=== PATIENT | female | born 1955 | race Caucasian/White ===

== ENCOUNTER → 2017-12-29 09:49 | Outpatient (CLI) | payer BC, SELFPAY ==
--- NOTE | 2017-12-29 09:53 | MM_ITS ---
MM Dig screening mamm BI w/CAD CAD Screening COMPARISON: Analog mammograms 01/10/2010 INDICATION: There is no personal or family history of breast cancer TECHNIQUE: Standard CC and MLO images were obtained. R2 CAD reviewed. FINDINGS: Scattered fibroglandular densities are seen in both breast. Again noted is a slightly asymmetric area of increased glandular densities in the upper outer quadrant left breast. There are stable small asymmetric moderate benign-appearing density near the axilla tail left breast likely a low-lying node. There is no suspicious lesion and there are no suspicious microcalcifications. IMPRESSION: Fibrofatty parenchyma with no suspicious lesion seen BI-RADS Category: 2 Benign Finding(s) RECOMMENDED FOLLOW-UP: 1YR - 1 YEAR FOLLOW-UP (A letter has been sent to the patient regarding results of the study.)
== END ==
PROVIDERS: PCP Nurse Practitioner Family; Visit Provider Nurse Practitioner Family
DX: Z12.31 Encounter for screening mammogram for malignant neoplasm of breast (principal)
CPT/HCPCS: 77067

== ENCOUNTER → 2018-03-26 11:30 | Outpatient (CLI) | payer BC, SELFPAY ==
--- NOTE | 2018-03-26 11:42 | XR_ITS ---
XR hand RT min 3V HISTORY: Pain ITS.REASON: NAIF ARTHRITIS ORDERING PHYSICIAN: Cornelio Onofre MD PATIENT AGE: 62 years COMPARISON: None FINDINGS: No fracture or dislocation. No lytic or blastic change. There is normal mineralization.. erosive changes evident.. There are mild osteoarthritic changes of the fifth PIP joint. No erosive changes evident. Mild osteoarthritic changes also involve the second DIP joint. IMPRESSION: Mild osteoarthritis
--- NOTE | 2018-03-26 11:42 | XR_ITS ---
XR hand LT min 3V HISTORY: Left hand pain ITS.REASON: NAIF ARTHRITIS ORDERING PHYSICIAN: Cornelio Onofre MD PATIENT AGE: 62 years COMPARISON: None FINDINGS: No fracture or dislocation. No lytic or blastic change. There is normal mineralization.. The joint spaces are well-preserved. No significant degenerative/arthritic changes. No erosive changes evident.. No erosive changes. Faint calcific density is present along the ulnar aspect of the DIP joint of the second finger not significant IMPRESSION: Negative, no acute finding
== END ==
PROVIDERS: PCP Internal Medicine Adolescent Medicine; Visit Provider Internal Medicine Adolescent Medicine
DX: M19.049 Primary osteoarthritis, unspecified hand (principal)
CPT/HCPCS: 73130

== ENCOUNTER → 2018-10-19 12:53 | Outpatient (CLI) | payer BC, SELFPAY ==
--- NOTE | 2018-10-19 12:59 | CT_ITS ---
CT lung screening EXAM: CT LUNG LOW DOSE WO CONTRAST HISTORY: ITS.REASON: TOBACCO DEPENDENCE ORDERING PHYSICIAN: Gorge Pate MD PATIENT AGE: 63 years COMPARISON: None TECHNIQUE: The exam was performed on a GE Light Speed [address] scanner using 2.90 mGy CTDI. A low dose helical CT CHEST was performed on a multi-detector scanner. All CT scans at the facility use one or more dose reduction, viz: automated exposure control, ma/kV adjustment per patient size (including targeted exams where dose is matched to indication, i.e. head), or iterative reconstruction technique. The LDCT was performed in a facility that meets the criteria for the screening program. Data regarding this exam was submitted to ACR which is an approved registry. The order for this exam indicates that it came as a result of a lung cancer screening counseling shard decision-making visit that included all the elements required of such a visit including smoking cessation. The radiologist interpreting this exam meets the CMS criteria for the LDCT lung cancer screening program. The exam is reported using the Lung-RADS classification scale and reported to the ACR registry. NOTE: This study was performed for the specific purposes of lung cancer screening and is not an alternative to diagnostic chest CT. RADIATION DOSE: CTDI vol(CT dose Index-volume) = 2.90mG DLP (Dose Length Product) = 99.40 mGcm FINDINGS: Indeterminate or Suspicious Lung Nodules(Category3-4B): None Indeterminate/Non-actionable Nodules(Category2): None Benign nodules(Category1)None LUNG PARENCHYMA Moderate centrilobular emphysema with hyperinflation and peribronchial thickening consistent with obstructive chronic bronchitis 8 mm nodular density right lower lobe in the lung base anteriorly possibly due to confluence of vessels. There are several small nodular densities around this region measuring 2 to 3 mm. Urinary calcifications. Small hiatal hernia. IMPRESSION: 1. Lung RADS Category: 3, probably benign 2. Other findings: Centrilobular edema/chronic bronchitis Coronary artery calcification RECOMMENDATIONS: 6 month LDCT follow-up
--- NOTE | 2018-10-19 13:00 | XR_ITS ---
XR DEXA axial skeleton HISTORY: ITS.REASON: POST MENOPAUSAL ORDERING PHYSICIAN: Gorge Pate MD PATIENT AGE: 63 years COMPARISON: None FINDINGS: The BMD measured at the AP Spine L1-L4 femoral neck is 1.066 g/cm squared with a T score of -0.9. This is considered Normal according to the World Health Organization criteria. Fracture risk is Low. Treatment is advised. L1 L4 density has a T score of -0.9 IMPRESSION: Normal bone density with low fracture risk. Recommend follow-up exam in October 2020
== END ==
PROVIDERS: PCP Internal Medicine Adolescent Medicine; Visit Provider Internal Medicine Adolescent Medicine
DX: Z12.2 Encounter for screening for malignant neoplasm of respiratory organs (principal); Z87.891 Personal history of nicotine dependence; Z13.820 Encounter for screening for osteoporosis; Z78.0 Asymptomatic menopausal state
CPT/HCPCS: 77080

== ENCOUNTER → 2020-01-24 13:51 | Outpatient (CLI) | payer MEDICARE, SELFPAY ==
--- NOTE | 2020-01-24 14:02 | XR_ITS ---
PROCEDURE: XR CHEST 2V CLINICAL HISTORY: COUGH COMPARISON: No exams were available for comparison FINDINGS: The cardiomediastinal silhouette and pulmonary vascularity are within normal limits. The lungs are clear without infiltrates, suspicious nodules, or pleural effusions. No acute bony abnormalities. IMPRESSION: No acute findings. Dictated by: Roge Elias MD 01/24/2020 15:36 Electronically signed by Roge Elias MD in [place] 01/24/2020 15:36
[2020-01-24 14:24] LABS: Adenovirus,PCR Not Detected (NotDetected); Bordetella Pertussis Not Detected (NotDetected); Chlamydophila Pneumoniae, PCR Not Detected (NotDetected); Coronavirus 229E Not Detected (NotDetected); Coronavirus NL63 Not Detected (NotDetected); Coronavirus OC43 Not Detected (NotDetected); Coronovirus HKU1,PCR Not Detected (NotDetected); Human Metapneumovirus Not Detected (NotDetected); Influenza A, PCR Not Detected (NotDetected); Influenza AH1, 2009 Not Detected (NotDetected); Influenza AH1, PCR Not Detected (NotDetected); Influenza AH3,PCR Not Detected (NotDetected); Influenza B, PCR Not Detected (NotDetected); Mycoplasma Pneumoniae, PCR Not Detected (NotDetected); Parainfluenza 1, PCR Not Detected (NotDetected); Parainfluenza 2, PCR Not Detected (NotDetected); Parainfluenza 3, PCR Not Detected (NotDetected); Parainfluenza 4, PCR Not Detected (NotDetected); Respiratory Syncytial Virus Not Detected (NotDetected); Rhinovirus/Enterovirus Not Detected (NotDetected)
== END ==
PROVIDERS: PCP Internal Medicine Adolescent Medicine; Visit Provider Internal Medicine Adolescent Medicine
DX: R05 Cough (principal)
CPT/HCPCS: 71046; 87486; 87581; 87633; 87798

== ENCOUNTER → 2020-02-16 07:59 | Outpatient (CLI) | payer MEDICARE, SELFPAY ==
--- NOTE | 2020-02-16 08:03 | CT_ITS ---
PROCEDURE: CT LUNG SCREENING CLINICAL INDICATION: HX TOBACCO USE Forty pack-year smoking history, asymptomatic for lung cancer COMPARISON: LUNGSCREEN CT lung screening from 10/19/2018 TECHNIQUE: The exam was performed on a GE Light Speed [address] scanner using 2.90 mGy CTDI. A low dose helical CT CHEST was performed on a multi-detector scanner. All CT scans at the facility use one or more dose reduction, viz: automated exposure control, ma/kV adjustment per patient size (including targeted exams where dose is matched to indication, i.e. head), or iterative reconstruction technique. The LDCT was performed in a facility that meets the criteria for the screening program. Data regarding this exam was submitted to ACR which is an approved registry. The order for this exam indicates that it came as a result of a lung cancer screening counseling shard decision-making visit that included all the elements required of such a visit including smoking cessation. The radiologist interpreting this exam meets the CMS criteria for the LDCT lung cancer screening program. The exam is reported using the Lung-RADS classification scale and reported to the ACR registry. NOTE: This study was performed for the specific purposes of lung cancer screening and is not an alternative to diagnostic chest CT. RADIATION DOSE: CTDI vol(CT dose Index-volume) = 2.90mG DLP (Dose Length Product) = 96.38 mGcm Lung Rads Category: FINDINGS: Centrilobular emphysema with COPD. There is a lobular opacity in the right lung base within the right lower lobe anteriorly which is felt to be due to a confluence of mildly prominent vessels/varicose. This is slightly more prominent compared to the previous exam. No suspicious nodules are evident. OTHER FINDINGS: Small hiatal hernia. Coronary artery calcifications IMPRESSION: Lobular opacity is present in the right lower lobe anteriorly compatible with pulmonary varix with COPD/in centrilobular emphysema Lung rads category 2 benign findings. Recommend annual LDCT Dictated by: Roge Elias MD 02/26/2020 10:59 Electronically signed by Roge Elias MD in [place] 02/26/2020 10:59
== END ==
PROVIDERS: PCP Internal Medicine Adolescent Medicine; Visit Provider Nurse Practitioner Family
DX: Z87.891 Personal history of nicotine dependence (principal); Z12.2 Encounter for screening for malignant neoplasm of respiratory organs

== ENCOUNTER → 2020-07-14 12:08 | Outpatient (CLI) | payer MEDICARE, SELFPAY ==
--- NOTE | 2020-07-14 12:33 | MM_ITS ---
PROCEDURE: MM DIG SCREENING MAMM BI W/CAD Digital Breast Tomosynthesis Included CLINICAL INDICATION: ROUTINE SCREENING There is no personal or family history of breast cancer. COMPARISON: MG XR MAMMO DIG SCREEN W CAD MOB from 04/28/2008 MG XR MAMMO DIG SCREEN CAD from 01/10/2010 [facility] MM Dig screening mamm BI w/CAD from 12/29/2017 TECHNIQUE: Standard CC and MLO images and 3D Tomosynthesis was obtained. R2 CAD reviewed. FINDINGS: Mild diffuse fibroglandular densities are seen throughout both breasts. There is a stable small nodular lesion upper central aspect left breast with a slightly lobulated border and this almost surely is a intramammary node. There is no new or suspicious lesion in either breast and no suspicious microcalcifications. There are multiple small nodes in both axilla. IMPRESSION: Fibrofatty parenchyma with no suspicious lesions seen BI-RAD Category: 2 Benign Finding(s) FOLLOW-UP: 1YR 1 Year Follow-up (A letter has been sent to the patient regarding results of the study.) Dictated by: Dr. Teto Philip MD 07/14/2020 13:09 Dr. Teto Philip MD in [place] 07/14/2020 13:09
== END ==
PROVIDERS: PCP Internal Medicine Adolescent Medicine; Visit Provider Nurse Practitioner Family
DX: Z12.31 Encounter for screening mammogram for malignant neoplasm of breast (principal); R06.02 Shortness of breath
CPT/HCPCS: 77063; 77067; 94060; 94618

== ENCOUNTER → 2020-09-02 10:45 | Outpatient (CLI) | payer MEDICARE, SELFPAY ==
[2020-09-02 14:33] LABS: Coronavirus 19 IgG Antibody Positive (Negative); Coronavirus 19 IgM Antibody Negative (Negative)
== END ==
PROVIDERS: Visit Provider Internal Medicine Gastroenterology
DX: Z01.818 Encounter for other preprocedural examination (principal); Z12.11 Encounter for screening for malignant neoplasm of colon
CPT/HCPCS: 36415; 86328

== ENCOUNTER 2020-09-04 06:36 | Day surgery (SDC) | payer MEDICARE, SELFPAY ==
[2020-08-29 09:35] VITALS: BMI 27.2
[2020-09-04] VITALS (7 sets, daily range): BP systolic 89–154; BP diastolic 44–80; PULSE 44–60; RESP 17–18; TEMP 36.1–36.8; O2SAT 95–99
--- NOTE | 2020-09-04 09:16 | HMH.ANESCL ---
[facility] Anesthesia Checklist - Patient Identification Patient Identification: Arm Band - Structural Data Admitted From: Home Planned Operative Procedure/s: colonoscopy Consent for Planned Operative Procedure(s) Verified: Yes Verified Documents: Surgical Consent, History and Physical - NPO Status Verified Time NPO: 00:00 - Additional verifications Anesthesia Reactions: No - Airway Assessment C-Spine Mobility Assessed: Yes (mp2) TMJ Mobility Assessed: Yes Dentition: Good Dentition - Neurological Assessment Level of Consciousness: Awake, Alert - Anesthesia Plan Anesthesia Risk discussed: Yes Anesthesia Plan: Verified ASA Class: III Anesthesia Type: MAC [facility] History I have reviewed the patient's past medical history: Yes Medical History: Reports:: Asthma, Chronic Obstructive Pulmonary Disease (COPD), Lung Disease (lotus-cpap hs) Denies:: Cancer, Diabetes Mellitus Type 1, Diabetes Mellitus Type 2, Internal Pacemaker, MRSA, Seizures *Have you ever received a pneumonia vaccine?: Yes *Have you received a flu vaccine this season?: Yes Anesthesia experience/problems:: nac Other Surgeries: Yes: Dilation and Curettage, Other. No: Pacemaker Amputation: No Fractures: No - *Social History Alcohol Intake: never Substance Use Type: denies use *Occupational Status:: retired Housing: house Household Members: spouse *Travel in the last 8 weeks: None Family Hx:: No significant family history
--- NOTE | 2020-09-04 09:41 | HMH.PROC ---
[facility] Procedure Note Procedure Note:: Colonoscopy Procedure Report: Colonoscopy with cold snare polypectomy Endoscopist: Anup Cabrera II, MD Referring physician: Cornelio Onofre M.D. Date of Procedure: September 04, 2020 Equipment: Olympus 180 variable stiffness pediatric colonoscope Sedation: MAC sedation Indication: Mrs. Guzman is a 65-year-old female who is here for initial screening colonoscopy. She does state that her paternal uncle had colon cancer and her sister has had multiple adenomatous colon polyps. She reports no abdominal pain, weight loss, change in her bowel habits or rectal bleeding. She does have some very mild chronic constipation. She also has some trepidation about colonoscopy since her sister and niece both had complications from the procedure itself. Procedure: Prior to the procedure, a history and physical exam was performed, and patient's medications and allergies were reviewed. The risks, benefits and alternatives of the sedation and procedure were discussed with the patient. All questions were answered and informed consent was obtained. The patient was brought to the procedure room. Patient identification and proposed procedure were verified by the physician and the nurse. The patient was placed in a left lateral decubitus position and the scope was passed under direct vision. Throughout the procedure, the patient's blood pressure, pulse, and oxygen saturations were monitored continuously. The colonoscopy was accomplished without difficulty. The patient tolerated the procedure well. Findings: On digital rectal examination there was normal rectal tone. There were no external hemorrhoids. The colonoscope was introduced through the anal canal to the rectum and advanced to the cecum. The ileocecal valve and appendiceal orifice were identified. The scope was advanced a short distance into the ileum which appeared grossly normal. The scope was then withdrawn into the colon. There were 2 diminutive polyps (cecum x1 (3 mm) and ascending x1 (4 mm)) which were both removed via cold snare polypectomy. The cecal polyp was small so it was removed but not retrieved. There were scattered diverticuli throughout the descending and sigmoid colon (LEFT colon). The rectum itself was normal. Upon retroflexion within the rectum there were grade 1-2 internal hemorrhoids. The preparation was excellent throughout with [place] Preparation Score of 9. The cecal time was 12 minutes. Impression: 1. Diminutive colonic polyps x2 2. Left-sided diverticulosis 3. Grade 1-2 internal hemorrhoids Plan: I will follow up the polyp pathology and recommend repeat colonoscopy again in 7-10 years based upon the polyp histology. I would encourage a fiber bowel regimen on a long-term daily maintenance basis.
== END 2020-09-04 10:38 | disposition home or self-care (01) ==
LOC: OUTP 06:38
PROVIDERS: PCP Internal Medicine Adolescent Medicine; Visit Provider Internal Medicine Gastroenterology
PROC: 0DJD8ZZ Inspection of Lower Intestinal Tract, Via Natural or Artificial Opening Endoscopic (ICD-10-PCS; CPT 45378; principal; 2020-09-04 09:00)
DX: Z12.11 Encounter for screening for malignant neoplasm of colon (principal); K63.5 Polyp of colon; K57.30 Diverticulosis of large intestine without perforation or abscess without bleeding; K64.0 First degree hemorrhoids; J44.9 Chronic obstructive pulmonary disease, unspecified; G47.33 Obstructive sleep apnea (adult) (pediatric); Z88.0 Allergy status to penicillin; Z88.8 Allergy status to other drugs, medicaments and biological substances; Z79.51 Long term (current) use of inhaled steroids; Z79.899 Other long term (current) drug therapy
CPT/HCPCS: 45385; 88305

== ENCOUNTER → 2020-11-23 12:51 | Outpatient (CLI) | payer MEDICARE, SELFPAY ==
[2020-11-23 14:52] LABS: Blood Urea Nitrogen 15 mg/dl (7-17); Estimated Glomerular Filt Rate 84 ml/min (>60); GFR (African American) 101 ML/MIN (>60)
== END ==
PROVIDERS: Visit Provider Internal Medicine Adolescent Medicine
DX: R10.811 Right upper quadrant abdominal tenderness (principal); Z80.0 Family history of malignant neoplasm of digestive organs
CPT/HCPCS: 36415; 82565; 84520

== ENCOUNTER → 2020-11-24 08:44 | Outpatient (CLI) | payer MEDICARE, SELFPAY ==
--- NOTE | 2020-11-24 08:52 | CT_ITS ---
PROCEDURE: CT ABDOMEN PELVIS W CON CLINICAL INDICATION: ABD PAIN,VOMITING ruq tenderness, bloating, nausea, acid reflux family hx of bile duct cancer 75ml iso 370 no prior COMPARISON: CT LUNGSCREEN CT lung screening from 10/19/[address] LUNG SCREENING from 02/16/2020 TECHNIQUE: IV Contrast: 75ML Isovue 370 Oral Contrast None Axial images obtained with sagittal and coronal reformats. All CT scans at the facility use one or more dose reduction, viz: automated exposure control, ma/kV adjustment per patient size (including targeted exams where dose is matched to indication, i.e. head), or iterative reconstruction technique. FINDINGS: LOWER THORAX: No change in the nodular opacity in the right lung base. Coronary artery calcifications. ABDOMEN & PELVIS: A small 4 mm hypodensity is present in the right hepatic lobe inferiorly nonspecific too small to categorize. A tiny central hypodensity is present in the spleen and 1 along the peripheral aspect of the spleen posteriorly. These are nonspecific too small to categorize. There is a small hiatal hernia. The adrenal glands and pancreas have an unremarkable appearance no renal or ureteral calculi are evident. There is minimal prominence of the renal pelves. No intestinal obstruction or free air. There is a mild amount of retained colonic feces. No evidence of appendicitis or diverticulitis. There is a small umbilical hernia containing fat. The uterus is canted toward the left with a focal coarse calcification in the uterine fundus. No acute bony findings. IMPRESSION: 1. Small hiatal hernia. 2. Nonspecific small hypodensities of the liver and spleen too small to categorize. 3. Stable nodular opacity in the right lung base 4. Moderate amount of retained colonic feces. No acute abdominal findings Dictated by: Roge Elias MD 11/25/2020 08:20 Roge Elias MD in [place] 11/25/2020 08:20
== END ==
PROVIDERS: PCP Internal Medicine Adolescent Medicine; Visit Provider Nurse Practitioner Family
DX: R10.811 Right upper quadrant abdominal tenderness (principal); Z80.0 Family history of malignant neoplasm of digestive organs
CPT/HCPCS: 74177; Q9967

== ENCOUNTER → 2020-11-28 09:00 | Outpatient (CLI) | payer MEDICARE, SELFPAY ==
--- NOTE | 2020-11-28 09:02 | FL_ITS ---
PROCEDURE: FL BARIUM SWALLOW CLINICAL INDICATION: DYSPHAGIA, UNSPECIFIED TYPE COMPARISON: No exams were available for comparison TECHNIQUE: In the upright position the patient was observed to swallow barium in both the AP and lateral view. The cervical esophagus was examined under fluoroscopy with images obtained. The patient was then placed prone in the right anterior oblique position and was observed to swallow barium with Valsalva technique . FLUOROSCOPY TIME: 1 minutes and 37 seconds FINDINGS: There was no evidence of aspiration. There was normal peristalsis. No filling defects or mucosal abnormalities. No masses or strictures. No hiatal hernia. There was GE reflux during the exam IMPRESSION: GE reflux otherwise negative Dictated by: Roge Elias MD 11/28/2020 14:08 Roge Elias MD in [place] 11/28/2020 14:08
== END ==
PROVIDERS: PCP Internal Medicine Adolescent Medicine; Visit Provider Nurse Practitioner Family
DX: R13.10 Dysphagia, unspecified (principal)
CPT/HCPCS: 74220

== ENCOUNTER → 2021-12-26 11:27 | Outpatient (CLI) | payer MEDICARE, SELFPAY | PROVIDERS: PCP Nurse Practitioner Family; Visit Provider Nurse Practitioner Family | DX: G47.33 Obstructive sleep apnea (adult) (pediatric) (principal); R40.0 Somnolence; R06.83 Snoring; R53.83 Other fatigue | CPT/HCPCS: G0399 ==

== ENCOUNTER → 2022-03-28 10:19 | Outpatient (CLI) | payer MEDICARE, SELFPAY ==
[2022-03-28 14:28] LABS: Basophils # 0.1 K/mm3 (0-0.2); Basophils % 1.2 % (0.1-2.0); Eosinophils # 0.1 K/mm3 (0.0-0.4); Eosinophils % 2.9 % (0.1-12.0); Hematocrit 42.6 % (37.0-47.0); Hemoglobin 14.4 g/dL (12.2-16.2); Lymphocytes # 1.4 K/mm3 (0.7-4.5); Mean Corpuscular HGB Conc 33.8 g/dL (31.8-35.4); Mean Corpuscular Hemoglobin 31.9 pg (27.0-31.2); Mean Corpuscular Volume 94.3 fl (81-99); Mean Platelet Volume 9.2 fl (7.4-10.4); Monocytes # 0.4 K/mm3 (0.1-1.0); Neutrophils # 2.2 K/mm3 (1.8-7.8); Platelet Count 225 K/mm3 (142-424); Red Blood Count 4.52 M/mm3 (4.20-5.40); Red Cell Distribution Width 13.7 % (11.5-17.5); White Blood Count 4.2 K/mm3 (4.8-10.8)
[2022-03-28 14:48] LABS: Chloride 107 mmol/L (98-107); Sodium 139 mmol/L (136-145)
[2022-03-28 14:50] LABS: Blood Urea Nitrogen 12 mg/dl (7-17); Estimated Glomerular Filt Rate 83 ml/min (>60); GFR (African American) 101 ML/MIN (>60)
[2022-03-28 14:51] LABS: Alanine Aminotransferase 24 U/L (12-78); Albumin/Globulin Ratio 1.8 (1.1-1.8); Alkaline Phosphatase 80 U/L (38-126); Aspartate Amino Transferase 24 U/L (14-36); Bilirubin,Total 0.4 mg/dl (0.2-1.3); Calcium 9.3 mg/dl (8.4-10.2); Carbon Dioxide 24 mmol/L (22.0-30.0); Globulin 2.2 g/dL (1.3-3.2); Glucose 119 mg/dl (74-100); Total Protein,Serum 6.2 g/dl (6.3-8.2)
[2022-03-29 11:16] LABS: Hepatitis C Antibody 0.1 s/co ratio (0.0-0.9)
== END ==
PROVIDERS: Visit Provider Nurse Practitioner Family
DX: K62.89 Other specified diseases of anus and rectum (principal); Z20.5 Contact with and (suspected) exposure to viral hepatitis
CPT/HCPCS: 36415; 80053; 85025; 87380

== ENCOUNTER → 2023-01-13 23:35 | Outpatient (CLI) | payer MEDICARE, SELFPAY | PROVIDERS: PCP Family Medicine; Visit Provider Family Medicine | DX: I10 Essential (primary) hypertension (principal) | CPT/HCPCS: 80053; 80061; 84443; 85025 ==

== ENCOUNTER → 2023-01-15 11:00 | Outpatient (CLI) | payer MEDICARE, SELFPAY | PROVIDERS: PCP Nurse Practitioner Family; Visit Provider Nurse Practitioner Family | DX: I25.10 Atherosclerotic heart disease of native coronary artery without angina pectoris (principal); R00.2 Palpitations; R06.02 Shortness of breath; R42 Dizziness and giddiness; R60.9 Edema, unspecified; R94.31 Abnormal electrocardiogram [ECG] [EKG] | CPT/HCPCS: 93270 ==

== ENCOUNTER → 2023-01-27 14:31 | Outpatient (CLI) | payer MEDICARE, SELFPAY ==
--- NOTE | 2023-01-27 14:32 | CT_ITS ---
FINAL REPORT TECHNIQUE: Axial images were obtained from the lung apex to the mid abdomen by computed tomography. This study was performed with techniques to keep radiation doses as low as reasonably achievable (ALARA). Individualized dose reduction techniques using automated exposure control or adjustment of mA and/or kV according to the patient's size were employed. CLINICAL HISTORY: lung cancer screening, Former smoker, quit 5 years ago. smoked 40 years. 1 ppd COMPARISON: 02/16/2020 FINDINGS: CHEST CT LOW DOSE CTDI vol (mGy): 2.7 DLP (mGy-cm): 86.2 There is no axillary adenopathy. There is no hilar or mediastinal adenopathy. The heart is normal in size. There is no pericardial or pleural effusion. There are moderate to advanced changes of centrilobular emphysema, particularly in the upper lobes. There is a tubular vascular structure in the right lower lobe which is stable, probably related to pulmonary varix. Limited images of the upper abdomen are unremarkable. IMPRESSION: Stable tubular structure in the right lower lobe, probably related to pulmonary varix. Lung RADS category 1S. Recommend 12 month follow-up low-dose chest CT. Reviewed, Interpreted and Dictated by Bobby Lance MD Transcribed by Myrna Santacruz Authenticated and [facility]
--- NOTE | 2023-01-27 14:54 | MM_ITS ---
PROCEDURE INFORMATION: Exam: MG Bilateral Screening 3D Mammography Exam date and time: 01/27/2023 3:04 PM Age: 67 years old Clinical indication: Screening mammogram. TECHNIQUE: Imaging protocol: Bilateral Screening tomosynthesis and 2D mammography including computer-aided detection (CAD) when performed. COMPARISON: 1. MG MM DIG SCREENING MAMM BI W/CAD 07/14/2020 12:37 PM 2. [facility] MM Dig screening mamm BI w/CAD 12/29/2017 10:36 AM 3. MG XR MAMMO DIG SCREEN CAD 01/10/2010 11:25 AM FINDINGS: MAMMOGRAPHY: Breast composition: There are scattered areas of fibroglandular density. Mass: None. Architectural distortion: No new or suspicious architectural distortion. Calcifications: No new or suspicious calcifications are present Asymmetric density: No new or suspicious asymmetric density is present Skin thickening: None. Axillary adenopathy: None. IMPRESSION: No mammographic evidence of malignancy. Recommend annual screening mammography unless otherwise clinically indicated. ASSESSMENT: BI-RADS category 1: Negative
== END ==
PROVIDERS: PCP Family Medicine; Visit Provider Nurse Practitioner Family
DX: R63.5 Abnormal weight gain (principal); Z87.891 Personal history of nicotine dependence; Z12.31 Encounter for screening mammogram for malignant neoplasm of breast; Z12.2 Encounter for screening for malignant neoplasm of respiratory organs
CPT/HCPCS: 71271; 77063; 77067

== ENCOUNTER → 2023-02-06 07:18 | Outpatient (CLI) | payer MEDICARE, SELFPAY ==
--- NOTE | 2023-02-06 07:18 | NM_ITS ---
APPROVED REPORT Exam: Nuclear Stress Test Indication: chest pain..fatigue..palpitations..Soa Patient Location: Outpatient Stress Tech: Angy Love PA Tech:Richelle Richardson ARRT RT(R)(N) Ht: 5 ft 6 in Wt: 200 lbs HR: 53 bpm BP: 152/69 mmHg BSA: 2.00 m2 TID: 1.19 BMI: 32.2 History: chest pain..fatigue..palpitations..Soa Procedure: Patient received 0.4 mg of intravenous Lexiscan, resting heart rate 53 bpm, resting blood pressure 152/69 mmHg, with Lexiscan maximum heart rate achieved was 79 bpm which is Less than 85 % of the maximum predicted heart rate and blood pressure was 165/82 mmHg. With Lexiscan, patient denied any complaint of chest pain. Electrocardiogram Resting electrocardiogram showed sinus rhythm, with Lexiscan there is less than 1.[address] segment depression noted from the baseline EKG. The EKG portion of the Lexiscan is nondiagnostic. Cardiac Stress and Resting SPECT Images: Cardiac Stress and Resting SPECT images were obtained using technetium 99m Myoview 32.9 mCi stress and 10.50 mCi at rest. Gated SPECT analysis of segmental wall motion and calculation of the ejection fraction also done. Prone images were also obtained. Cardiac stress and rest respectively show uniform myocardial activity without segmental perfusion abnormality, computer derived ejection fraction is 60% with no regional wall motion abnormality, right ventricle is normal size and contractility. Conclusion: 1. The EKG portion of the Lexiscan is nondiagnostic. 2. No scintigraphic evidence of reversible ischemia seen, computer derived ejection fraction is 60% with no regional wall motion abnormality, right ventricle is normal size and contractility. 3. Normal Lexiscan Myoview study. Electronically signed by : Clovis Gomez MD 02/06/2023 16:57:42
--- NOTE | 2023-02-06 08:15 | CA_ITS ---
APPROVED REPORT EXAM: Comprehensive 2D, Doppler, and color-flow Echocardiogram Project Manager: Marilynn Melton RVT Ht: 5 ft 6 in Wt: 203lbs BSA: 2.01 BP: 132/82 mmHg Indications: CP,GERD,ABN EKG,EX SMOKER,PALPS,SOA 2D Dimensions LVOT 2.19 cm (M/F) 1.5-2.5 LA Volume 34.10 mL LA Volume Index 16.97 mL/m2 (M/F) 16-34 M-Mode Dimensions RVDd 2.46 cm (0.9-2.6) LA Diam 3.79 cm (1.9-4.0) LVDd 4.25 cm (3.5-5.7) Ao Diam 3.07 cm (2.0-3.7) LVDs 3.46 cm (3.5-5.7) IVSd 0.95 cm (0.6-1.1) PWd 1.06 cm (0.6-1.1) EF (Teich) 38.70% FS 18.60% EDV (Teich) 80.80 mL TAPSE 2.73 (<1.7) ESV (Teich) 49.50 mL LV Diastology E Decel Time 260.00 (160-240 msec) E/A Ratio 1.0 MED E' 8.10 (< 7 cm/sec) E'/MED E' Ratio 8.90 (>14) LAT E' 8.00 (<10 cm/sec) E/LAT E' Ratio 9.01 (>14) Aortic Valve AO Peak GR. 5.80 mmHg Mitral Valve MV E Max Judson. 72.00 (40-130 cm/s) MV A Velocity 70.00 (40-130 cm/s) E/A Ratio 1.03 MV Decel. Time 260.00 (160-240 ms) MV PHT 76.00 ms Pulmonary Valve PV Peak Velocity 86.00 (50-150 cm/s) Tricuspid Valve TR P. Velocity 202.00 cm/s RAP Estimate 10.00 mmHg RVSP 26.40 mmHg Left Ventricle Left atrium normal size left ventricle is normal size, estimated ejection fraction 55% with no regional wall motion abnormality, diastolic parameters are within normal range. Right Ventricle Right atrium and right ventricle are normal size and contractility. Aortic Valve Aortic valve is grossly normal there is no aortic stenosis aortic insufficiency. Mitral Valve Mitral valve is grossly normal, there is trace mitral regurgitation. Tricuspid Valve Tricuspid grossly normal, there is trace tricuspid regurgitation, tricuspid regurgitation jet velocity is inadequate for calculation of the right ventricular systolic pressure. Pulmonic Valve Pulmonic valve is poorly visualized. Great Vessels Aortic root normal size. Inferior vena cava normal size with normal inspiratory collapse. Pericardium No significant pericardial effusion noted. Conclusion 1. Normal left ventricular size preserved left ventricular systolic function, estimated ejection fraction 55% with no regional wall motion abnormality, diastolic parameters are within normal range. 2. Trace mitral and tricuspid regurgitation. 3. No significant pericardial effusion noted. 4. Inferior vena cava normal size with normal inspiratory collapse. Electronically signed by : Clovis Gomez MD 02/06/2023 17:25:02
--- NOTE | 2023-02-06 09:13 | CA_ITS ---
APPROVED REPORT Exam: Pharmacologic Technologist: Angy Schaeffer, Ht: 5 ft 6 in Wt: 203 lbs BSA: 2.01 m2 HR: 52 bpm BP: 152/69 mmHg Medical History Medications: Omeprazole,,,,, Ropinirole,,,,, Albuterol,,,,, Calcium,,,,, Magnesium,,,,, Metamucil,,,,, Potassium,,,,, Myrbetriq,,,,, [place],,,,, GlUCOsamine hci,,,,, Same,,,,, Stress Test Details Test: LEXISCAN Reason for pharmacologic stress test: physical limitation. HR Resting HR: 53 bpm Max Heart Rate (APMHR): 152.821025 bpm Max HR Achieved: 79 bpm Target HR (85% APMHR): 129.481260 bpm % of APMHR: 51.97 Recovery HR: 65 bpm BP Resting BP: 152.0/69.0 mmHg Max BP: 165.0/82.0 mmHg Recovery BP: 165.0/82.0 mmHg ECG Resting ECG: Sinus lamin, low voltage QRS Clinical Exercise duration: 04:02 min Highest Stage Achieved: Stress ECG Conclusion Symptoms: Mild head discomfort. No CP. Arrhythmias/Ectopy: None ST-T Changes: No ST-T changes in lateral leads. Conclusion: Non-diagnostic Lexiscan strss. Myoview images reported separately. Test Summary REST . . . . . . . Resting REST 03:30 . . 53 . 152/ 69 . . Stage 1 01:00 . . 64 . . . . Stage 2 01:00 . . 77 . . . . Stage 3 01:00 . . 72 . 162/ 84 . . Stage 4 01:00 . . 66 . 128/ 80 . . Stage 4 01:02 . . 66 . 128/ 80 . Stop exercise at 04:02 RECOVERY 01:00 . . 69 . . . . RECOVERY 02:00 . . 67 . 127/ 85 . . RECOVERY 03:00 . . 64 . 165/ 82 . . RECOVERY 03:47 . . 62 . 165/ 82 . . Electronically signed by : Clovis Gomez MD 02/06/2023 16:46:52
== END ==
PROVIDERS: PCP Family Medicine; Visit Provider Nurse Practitioner Family
DX: I25.10 Atherosclerotic heart disease of native coronary artery without angina pectoris (principal); R00.2 Palpitations; R06.02 Shortness of breath; R42 Dizziness and giddiness; R94.31 Abnormal electrocardiogram [ECG] [EKG]
CPT/HCPCS: 78452; 93017; 93306; A9502; J2785

== ENCOUNTER → 2023-03-04 10:49 | Outpatient (CLI) | payer MEDICARE, SELFPAY ==
[2023-03-04 11:50] LABS: Eosinophils # 0.1 K/mm3 (0.0-0.4); Eosinophils % 1.4 % (0.1-12.0); Hematocrit 45.6 % (37.0-47.0); Hemoglobin 14.9 g/dL (12.2-16.2); Lymphocytes # 1.3 K/mm3 (0.7-4.5); Lymphocytes % 32.4 % (10-50); Mean Corpuscular HGB Conc 32.8 g/dL (31.8-35.4); Mean Corpuscular Hemoglobin 31.4 pg (27.0-31.2); Mean Corpuscular Volume 95.9 fl (81-99); Mean Platelet Volume 8.1 fl (7.4-10.4); Monocytes # 0.4 K/mm3 (0.1-1.0); Monocytes % 8.5 % (1.7-9.3); Neutrophils # 2.3 K/mm3 (1.8-7.8); Neutrophils % 56.8 % (37.0-80.0); Platelet Count 204 K/mm3 (142-424); Red Blood Count 4.76 M/mm3 (4.20-5.40); Red Cell Distribution Width 13.1 % (11.5-17.5); White Blood Count 4.1 K/mm3 (4.8-10.8)
[2023-03-09 18:20] LABS: D001-IgE D pteronyssinus <0.10 kU/L (Class 0); D002-IgE D farinae <0.10 kU/L (Class 0); E001-IgE Cat Dander <0.10 kU/L (Class 0); E005-IgE Dog Dander <0.10 kU/L (Class 0); E072-IgE Mouse Urine <0.10 kU/L (Class 0); G002-IgE Bermuda Grass <0.10 kU/L (Class 0); G006-IgE Timothy Grass <0.10 kU/L (Class 0); I006-IgE Cockroach, German <0.10 kU/L (Class 0); Immunoglobulin E, Total 16 IU/mL (6-495); M001-IgE Penicillium chrysogen <0.10 kU/L (Class 0); M002-IgE Cladosporium herbarum <0.10 kU/L (Class 0); M003-IgE Aspergillus fumigatus <0.10 kU/L (Class 0); M006-IgE Alternaria alternata <0.10 kU/L (Class 0); T001-IgE Maple/Box Elder <0.10 kU/L (Class 0); T003-IgE Common Silver Birch <0.10 kU/L (Class 0); T006-IgE Cedar, Mountain <0.10 kU/L (Class 0); T007-IgE Oak, White <0.10 kU/L (Class 0); T008-IgE Elm, American <0.10 kU/L (Class 0); T010-IgE Walnut <0.10 kU/L (Class 0); T011-IgE Maple Leaf Sycamore <0.10 kU/L (Class 0); T014-IgE Cottonwood <0.10 kU/L (Class 0); T015-IgE Ash, White <0.10 kU/L (Class 0); T022-IgE Pecan, Hickory <0.10 kU/L (Class 0); T070-IgE White Mulberry <0.10 kU/L (Class 0); W001-IgE Ragweed, Short <0.10 kU/L (Class 0); W011-IgE Thistle, Russian <0.10 kU/L (Class 0); W014-IgE Pigweed, Common <0.10 kU/L (Class 0); W018-IgE Sheep Sorrel <0.10 kU/L (Class 0)
== END ==
PROVIDERS: PCP Family Medicine; Visit Provider Internal Medicine Pulmonary Disease
DX: J45.909 Unspecified asthma, uncomplicated
CPT/HCPCS: 36415; 82785; 85025; 86003

== ENCOUNTER → 2023-07-10 10:15 | Outpatient (CLI) | payer MEDICARE, SELFPAY ==
[2023-07-08 18:37] LABS: Basophils % 0.6 % (0.1-2.0); Eosinophils # 0.1 K/mm3 (0.0-0.4); Eosinophils % 1.6 % (0.1-12.0); Lymphocytes # 1.5 K/mm3 (0.7-4.5); Lymphocytes % 31.6 % (10-50); Mean Corpuscular HGB Conc 32.6 g/dL (31.8-35.4); Mean Corpuscular Hemoglobin 32.4 pg (27.0-31.2); Mean Corpuscular Volume 99.2 fl (81-99); Mean Platelet Volume 9.9 fl (7.4-10.4); Monocytes # 0.4 K/mm3 (0.1-1.0); Neutrophils # 2.6 K/mm3 (1.8-7.8); Neutrophils % 57.1 % (37.0-80.0); Platelet Count 224 K/mm3 (142-424); Red Blood Count 4.64 M/mm3 (4.20-5.40); White Blood Count 4.6 K/mm3 (4.8-10.8)
[2023-07-08 18:57] LABS: Alanine Aminotransferase 20 U/L (12-78); Albumin Level 4.2 g/dl (3.5-5.0); Albumin/Globulin Ratio 1.4 (1.1-1.8); Alkaline Phosphatase 84 U/L (38-126); Anion Gap 12.5 mEq/L (5-15); Aspartate Amino Transferase 23 U/L (14-36); Bilirubin,Total 0.4 mg/dl (0.2-1.3); Blood Urea Nitrogen 12 mg/dl (7-17); Calcium 9.4 mg/dl (8.4-10.2); Carbon Dioxide 27 mmol/L (22.0-30.0); Chloride 104 mmol/L (98-107); Cholesterol 250 mg/dl (140-200); Estimated Glomerular Filt Rate 83 ml/min (>60); GFR (African American) 100 ML/MIN (>60); Glucose 100 mg/dl (74-100); HDL Cholesterol 82 mg/dl (40-60); Potassium 4.5 mmoL/L (3.5-5.1); Sodium 139 mmol/L (136-145); Total Protein,Serum 7.2 g/dl (6.3-8.2); Triglycerides 171 mg/dl (30-150); VLDL Cholesterol 34 mg/dL (0-40)
[2023-07-08 19:28] LABS: Thyroid Stimulating Hormone 1.46 uIU/mL (0.465-4.68)
== END ==
PROVIDERS: PCP Family Medicine; Visit Provider Family Medicine
DX: I10 Essential (primary) hypertension (principal); I25.10 Atherosclerotic heart disease of native coronary artery without angina pectoris; R53.83 Other fatigue; Z00.00 Encounter for general adult medical examination without abnormal findings
CPT/HCPCS: 80053; 80061; 84443; 85025

== ENCOUNTER 2024-03-23 10:09 | Outpatient (CLI) | payer MEDICARE, SELFPAY ==
--- NOTE | 2024-03-23 10:14 | US_ITS ---
FINAL REPORT CLINICAL HISTORY: intermittent abdominal pain FINDINGS: RIGHT UPPER QUADRANT ULTRASOUND Sonographic images of the right upper quadrant were obtained. The pancreas is partially obscured. There is mild fatty infiltration of the liver. Multiple gallstones are identified. The common duct measures 3 mm. Limited images of the right kidney are normal. IMPRESSION: Cholelithiasis. Fatty liver. Reviewed, Interpreted and Dictated by Carl Hall III, MD Transcribed by Myrna Santacruz Authenticated and [facility]
== END 2024-03-23 23:59 | disposition home or self-care (01) ==
PROVIDERS: PCP Family Medicine; Visit Provider Family Medicine
DX: R10.9 Unspecified abdominal pain (principal)
CPT/HCPCS: 76705

== ENCOUNTER 2024-07-23 14:30 | Outpatient (CLI) | payer MEDICARE, SELFPAY | END 2024-07-23 23:59 | disposition home or self-care (01) | LOC: LAB.DROPOF 07-26 12:55 | PROVIDERS: PCP Family Medicine; Visit Provider Family Medicine | DX: R30.0 Dysuria (principal); N39.0 Urinary tract infection, site not specified; B96.20 Unspecified Escherichia coli [E. coli] as the cause of diseases classified elsewhere | CPT/HCPCS: 87086; 87088; 87186 ==

== ENCOUNTER 2024-09-15 09:00 | Outpatient (CLI) | payer MEDICARE, SELFPAY ==
[2024-09-15 09:34] LABS: Basophils # 0.1 K/mm3 (0-0.2); Basophils % 1.4 % (0.1-2.0); Eosinophils # 0.1 K/mm3 (0.0-0.4); Eosinophils % 1.4 % (0.1-12.0); Hematocrit 45.6 % (37.0-47.0); Hemoglobin 16.1 g/dL (12.2-16.2); Lymphocytes # 1.2 K/mm3 (0.7-4.5); Lymphocytes % 28.1 % (10-50); Mean Corpuscular HGB Conc 35.3 g/dL (31.8-35.4); Mean Corpuscular Hemoglobin 33.1 pg (27.0-31.2); Mean Corpuscular Volume 93.8 fl (81-99); Mean Platelet Volume 7.8 fl (7.4-10.4); Monocytes # 0.4 K/mm3 (0.1-1.0); Monocytes % 9.2 % (1.7-9.3); Neutrophils # 2.6 K/mm3 (1.8-7.8); Neutrophils % 59.9 % (37.0-80.0); Platelet Count 247 K/mm3 (142-424); Red Blood Count 4.86 M/mm3 (4.20-5.40); Red Cell Distribution Width 12.9 % (11.5-17.5); White Blood Count 4.3 K/mm3 (4.8-10.8)
[2024-09-15 09:57] LABS: Alanine Aminotransferase 26 U/L (12-78); Albumin Level 4.4 g/dl (3.5-5.0); Alkaline Phosphatase 73 U/L (38-126); Anion Gap 12.3 mEq/L (5-15); Aspartate Amino Transferase 27 U/L (14-36); Bilirubin,Direct 0.4 mg/dl (0.0-0.4); Bilirubin,Indirect 0.1 mg/dL (0.0-0.9); Bilirubin,Total 0.5 mg/dl (0.2-1.3); Bilirubin,Unconjugated 0.1 mg/dL (0.0-1.1); Blood Urea Nitrogen 8 mg/dl (7-17); Calcium 9.6 mg/dl (8.4-10.2); Carbon Dioxide 27 mmol/L (22.0-30.0); Chloride 103 mmol/L (98-107); Chol/HDL Ratio 2.5 (1-3.5); Cholesterol 242 mg/dl (140-200); Estimated Glomerular Filt Rate 83 ml/min (>60); GFR (African American) 100 ML/MIN (>60); Glucose 90 mg/dl (74-100); HDL Cholesterol 96 mg/dl (40-60); Potassium 4.3 mmoL/L (3.5-5.1); Sodium 138 mmol/L (136-145); Total Protein,Serum 6.9 g/dl (6.3-8.2); Triglycerides 118 mg/dl (30-150); VLDL Cholesterol 24 mg/dL (0-40)
[2024-09-15 10:08] LABS: Direct LDL Cholesterol 125.21 mg/dL (100-129)
[2024-09-15 10:13] LABS: Free T4 (Free Thyroxine) 0.97 ng/dl (0.78-2.19)
[2024-09-15 10:27] LABS: Thyroid Stimulating Hormone 1.89 uIU/mL (0.465-4.68)
== END 2024-09-15 23:59 | disposition home or self-care (01) ==
LOC: LAB 09:02
PROVIDERS: PCP Family Medicine; Visit Provider Physician Assistant
DX: I10 Essential (primary) hypertension (principal); Z01.818 Encounter for other preprocedural examination
CPT/HCPCS: 36415; 80048; 80061; 80076; 84439; 84443; 85025

== ENCOUNTER 2025-01-18 13:34 | Outpatient (CLI) | payer MEDICARE, SELFPAY ==
--- NOTE | 2025-01-18 13:35 | CT_ITS ---
FINAL REPORT TECHNIQUE: Thin section axial images were obtained from the lung apices to the upper abdomen by computed tomography. Reformatted images were obtained and reviewed. This study was performed with techniques to keep radiation doses al low as reasonably achievable (ALARA). Individualized dose reduction techniques using automated exposure control or adjustment of mA and/or kV according to the patient's size were employed. CLINICAL HISTORY: lung cancer screening former smoker quit 8 years ago, 1ppd x45 years COMPARISON: 01/27/2023 FINDINGS: CHEST CT LOW DOSE 68-year-old female, former smoker who quit 8 years ago, 80-xxxj-asbi history. CTDI vol (mGy): 2.90 DLP (mGy-cm): 95.34 There is no axillary adenopathy. There is no mediastinal or hilar mass or adenopathy. The heart is normal in size. There is no pericardial or pleural effusion. There is moderate centrilobular emphysema. Lung window images demonstrate a tiny nodule at the margin of the minor fissure best seen on image #36 of series 4. There is also a tubular density in the right lower lobe, likely a varix, stable since the prior exam. Limited images of the upper abdomen are unremarkable. IMPRESSION: Lung-RADS category 2S, the S for a probable pulmonary pharynx. Recommend 12 month follow up low dose chest CT. Reviewed, Interpreted and Dictated by Bobby Lance MD Transcribed by Debbie Davis Authenticated and [facility]
[2025-01-18] MEDS: ALBUTEROL 0.083% 2.5 MG/3 ML NEB IH (15:05)
== END 2025-01-18 23:59 | disposition home or self-care (01) ==
LOC: RAD 13:35
PROVIDERS: PCP Family Medicine; Visit Provider Internal Medicine Pulmonary Disease
DX: R06.09 Other forms of dyspnea (principal); F17.210 Nicotine dependence, cigarettes, uncomplicated
CPT/HCPCS: 71271; 94060; 94618; 94726; 94729; J7613

== ENCOUNTER 2025-08-08 14:30 | Outpatient (CLI) | payer MEDICARE, SELFPAY ==
--- OUTSIDE RECORDS SUMMARY | 2025-08-08 14:34 | XMS_ITS | Clinical Summary ---
Author Organization [facility] Address [address] [place] [address] Care Team Providers Care Truck Cleaner Name Role Phone Provider, No Known Primary Care Provider Unavail able Social History Tobacco Use Types Packs/Day Years Used Date Smoking Tobacco: Never Assessed Abuse Screen Answer Date Recorded Unsafe at Home or Work/School Not on file Feels Threatened by Someone? Not on file Does Anyone Keep You from Co ntacting Others or Doint Things Outside the Home? Not on file 08/22/2023 Physical Sign of Abuse Present Not on file 1 Housing Stability Answer Date Recorded Current Living Arrangements Not on file 08/10 Potentially Unsafe Housing Conditions Not on lukas e 08/22/2023 Family and Community Support Answer Arturo e Recorded Help with Day-to-Day Activities Not on file 08/22/2023 Lonely or Isolated Not on file 08/22/2023 Employment Answer Date Recorded Do you want help finding or keeping work or a jefferson b? Not on file 08/22/2023 Disabilities Answer Date Recorded Concentrating, Remembering, or Making Decisions Difficulty Not on file 08/22/2023 Doing Errands Independently Difficulty Not on fi le 08/22/2023 Education Answer Date Recorded Help with school or training? Not on file Preferred Language Not on file 08/22/2023 Comments Unknown Sex and Gender Information Value Date Recorded Sex Assigned at Not on file Legal Sex Female 8:55 AM EDT Gender Identity Female 02/25/2023 8:56 AM EDT Sexual Orientation Not on file Plan of Treatment Health Maintenance Due Date Last Done Comments DXA SCAN 1955 TDAP/TD VACCINES (1 - Tdap) 1973 MAMMOGRAM 1994 COLOGUARD 1999 COLON CANCER SCREENING 5 YEA R SIGMOIDOSCOPY 1999 COLONOSCOPY 1999 COLORECTAL CANCER SCREENING 1999 CT COLONOGRAPHY 1999 FECAL OCCULT BLOOD TEST 1999 FIT Testing (1 year) 1999 Pneumococcal Vaccine 50+ (2 of 2 - PCV) 07/07/2021 07/07/2020 ANNUAL PHYSICAL 03/03/2023 HEPATITIS C SCREENING 03/03/2023 ZOSTER VACCINE (2 of 2) 03/13/2023 01/16/2023 INFLUENZA VACCINE 06/10/2025 01/09/2023, , 10/18/2019, Additional history exists COVID-19 Vaccine ( - 2024-2 6 season) 2025 11/27/2021, 02/01/2021, 01/04/2021 Insurance MEDICARE A & B [facility] OPT[facility] Care Teams Truck Cleaner Relationship Specialty Start Date End Date Provider, No Known [place] [address] PCP - General 02/25/23
--- OUTSIDE RECORDS SUMMARY | 2025-08-08 14:34 | XMS_ITS | Clinical Summary ---
Author Organization [facility] Address [address] [place] [address] Care Team Providers Care Hide Buffer Name Role Phone Cornelio Onofre MD Primary Care Provider [phone] Allergies Active Allergy Reactions Criticality Noted Date Comments Bupropion Unknown - Patient states they do not know rxn details Low 09/07/2020 Varenicline Unknown - Patient states they do not know rxn details Low 09/07/2020 Procaine Other - please document in the comment field High 02/17/2023 Burst blood vessels Penicillins Unknown - Patient states they do not know rxn details Low 09/07/2020 Ascorbate Anaphylaxis High 02/17/2023 Blisters also Wound Dressing Adhesive Rash High 02/17/2023 Blisters, and hernandez, Medications rOPINIRole (Requip) 0.25 MG tablet TAKE 1 TABLET BY MOUTH EVERY DAY FOR RESTLESS LEGS SYNDROME 3 Active omeprazole (PriLOSEC) [address] capsule Take by mouth 1 (one) time each day. 3 Active montelukast (Singulair) 10 MG tablet TAKE 1 TABLET BY MOUTH AT BEDTIME FOR ALLERGIES 3 Active Myrbetriq 50 MG tablet 3 Active FLUoxetine (PROzac) 10 MG capsule Take by mouth 1 (one) time each day. 3 Active albuterol 108 (90 Base) MCG/ACT inhaler INHALE 2 PUFFS INTO THE LUNGS EVERY 6 HOURS NEEDED FOR SHORTNESS OF BREATH 3 Active albuterol (Proventil) 4 MG tablet 0 Active albuterol (Proventil) 4 MG tablet Take 1 tablet (4 mg) by mouth. 2 Active S-Adenosylmethi onine (NAYE-e) 400 MG tablet Take by mouth. A ctive metFORMIN XR (Glucophage-XR) 500 MG 24 hr tablet Take 1 tablet (500 mg) by mouth 1 (one) time each day. 3 Active oxybutynin XL (Ditropan-XL) 15 MG 24 hr tablet Take 1 tablet (15 mg) by mouth 1 (one) time each day. 3 Active magnesium chloride 70-117 MG EC tablet Take 1 tablet (70 mg) by mouth 1 (one) time each day. Active glucosamine-cho ndroitin 500-400 MG tablet Take 1 tablet by mouth 3 (three) times a day. Active cholecalciferol (Vitamin D-3) 25 MCG (1000 UT) tablet Take by mouth 1 (one) time each day. Active psyllium (Metamucil) 0.36 g capsule Take 5 capsules by mouth 4 (four) times a day. Active Active Problems No known active problems Family History Medical History Relation Name Comments Neurofibromatosis Other Relation Name Status Comments Other Social History Tobacco Use Types Packs/Day Years Used Date Smoking Tobacco: Former Smokeless Tobacco: Current Alcohol Use Standard Drinks/Week Comments Yes 0 (1 standard drink = 0.6 oz pur e alcohol) Comments Unknown Sex and Gender Information Value Date Recorded Sex Assigned at Not on file Legal Sex Female 7:46 PM EDT Gender Identity Not on file Sexual Orientation Not on file Last Filed Vital Signs Vital Sign Reading Time Taken Comments Blood Pressure 187/81 07/24/2023 1:12 PM EDT Pulse 56 07/24/2023 1:12 PM EDT Temperature 35.6 C (96.1 F) 07/24/2023 1:12 PM EDT Respiratory Rate - - Oxygen Saturation 99% 07/24/2023 1:12 PM EDT Inhaled Oxygen Concentration - - Weight 94.4 kg (208 lb 3.2 oz) 07/24/2023 1:12 P M EDT Height 167.6 cm (5' 6 ) 07/24/2023 1:12 PM EDT Body Mass Index 33.6 07/24/2023 1:12 PM EDT Plan of Treatment Health Maintenance Due Date Last Done Comments [facility]-Bone Density Scan 1955 [facility]-Depression Screening 1955 [facility]-Hepatitis C Screening 1955 [facility]-Medicare Annual Wellness (AWV) 1955 [facility]-/Child/Adol SDOH Screenings 1955 [facility]- SDOH Screenings 1972 [facility]-Adult SDOH Screenings 1972 [facility]-DTaP,Tdap,and Td Vaccine s (1 - Tdap) 1973 CT Colonography 1999 Colonoscopy 1999 FIT-DNA 1999 FIT 1999 FOBT 1999 Sigmoidoscopy 1999 [facility]-Colorectal Cancer Screening 1999 [facility]-Breast Cancer Screening 2004 [facility]-Pneumococcal Vaccine: 50 + Years (2 of 2 - PCV) 07/07/2021 07/07/2020 [facility]-Zoster Vaccines (2 of 2) 03/13/2023 01/16/2023 [id number]-[id number] Vaccine (4 - 2024- season) 2025 11/27/2021, 02/01/2021, 01/04/2021 [facility]-Influenza Vaccine (#1) 07/11/202501/09, 09/24/2018, 12/12/2017 [facility]-RSV Vaccine: 60+ Years o r (1 - 1-dose 75+ series) 2029 [facility]-Obesity Intervention Completed 023, 02/17/2023 HPV Vaccines Aged Out No longer eligi ble based on patient's age to complete this topic [facility]-HIB Vaccines Aged Out No longer e ligible based on patient's age to complete this topic [facility]-Hepatitis A Vaccines Aged Out No longer eligible based on patient's age to complete this topic [facility]-IPV Vaccines Aged Out No longer e ligible based on patient's age to complete this topic [facility]-Rotavirus Vaccines Aged Out No lo nger eligible based on patient's age to complete this topic Insurance MEDICARE [facility] Care Teams Hide Buffer Relationship Specialty Start Date End Date Cornelio Onofre MD [address] [place] [address] PCP - General 03/23/21
--- NOTE | 2025-08-08 15:30 | MM_ITS ---
PROCEDURE INFORMATION: Exam: MG Bilateral Screening 3D Mammography Exam date and time: 08/08/2025 2:44 PM Age: 70 years old Clinical indication: Screening exam. TECHNIQUE: Imaging protocol: Bilateral Screening tomosynthesis and 2D mammography including computer-aided detection (CAD) when performed. COMPARISON: 1. MG MM DIG SCREENING MAMM BI W/CAD 01/27/2023 3:04 PM 2. MG MM DIG SCREENING MAMM BI W/CAD 07/14/2020 12:37 PM FINDINGS: MAMMOGRAPHY: Breast composition: There are scattered areas of fibroglandular density. Mass: No suspicious masses. Architectural distortion: None. Calcifications: No suspicious calcifications. Asymmetric density: None. Skin thickening: None. Axillary adenopathy: None. IMPRESSION: No mammographic evidence of malignancy. Annual screening is recommended unless otherwise clinically indicated. ASSESSMENT: BI-RADS Category 1: Negative.
== END 2025-08-08 23:59 | disposition home or self-care (01) ==
LOC: RAD 14:32
PROVIDERS: PCP Family Medicine; Visit Provider Family Medicine
DX: Z12.31 Encounter for screening mammogram for malignant neoplasm of breast (principal); R92.323 Mammographic fibroglandular density, bilateral breasts
CPT/HCPCS: 77063; 77067

== ENCOUNTER 2025-09-06 14:01 | Outpatient (CLI) | payer MEDICARE, SELFPAY ==
[2025-09-06 16:03] LABS: Albumin Level 3.7 g/dl (3.5-5.0); Chloride 100 mmol/L (98-107); Potassium 5.0 mmoL/L (3.5-5.1); Sodium 135 mmol/L (136-145)
[2025-09-06 16:06] LABS: Alanine Aminotransferase 52 U/L (12-78); Albumin/Globulin Ratio 1.1 (1.1-1.8); Alkaline Phosphatase 107 U/L (38-126); Anion Gap 9.0 mEq/L (5-15); Aspartate Amino Transferase 57 U/L (14-36); Bilirubin,Total 0.6 mg/dl (0.2-1.3); Blood Urea Nitrogen 11 mg/dl (7-17); Carbon Dioxide 31 mmol/L (22.0-30.0); Creatinine,Serum 0.70 mg/dl (0.52-1.04); Estimated Glomerular Filt Rate 82 ml/min (>60); GFR (African American) 100 ML/MIN (>60); Globulin 3.5 g/dL (1.3-3.2); Total Protein,Serum 7.2 g/dl (6.3-8.2)
[2025-09-06 16:07] LABS: Calcium 9.6 mg/dl (8.4-10.2); Glucose 100 mg/dl (74-100)
== END 2025-09-06 23:59 | disposition home or self-care (01) ==
LOC: LAB 14:03
PROVIDERS: PCP Family Medicine; Visit Provider Nurse Practitioner Family
DX: Z80.0 Family history of malignant neoplasm of digestive organs (principal)
CPT/HCPCS: 36415; 80053

== ENCOUNTER 2025-09-09 08:38 | Outpatient (CLI) | payer MEDICARE, SELFPAY ==
--- OUTSIDE RECORDS SUMMARY | 2025-02-12 17:30 | XMS_ITS ---
Author Organization [facility] Address [address] [place] [address] Care Team Providers Care Adding Machine Servicer Name Role Phone Cornelio Onofre Primary Care Provider [phone] Cornelio Onofre Unavailable Unavailable Migration, Provider Unavailable Unavailable Allergies Allergen (clinical drug ingredient) Drug/Non Drug Allergy documented on EMR Reaction Allergy Type Onset Date Status NOVACAINE (uncoded) Unknown Allergy Active WELLBUTRIN (uncoded) headache Allergy Active ascorbic acid Vitamin C SOA Drug Allergy Act jina varenicline Chantix headache Drug Allergy Activ e Penicillin anaphylaxis Drug Allergy Acti ve REASON FOR VISIT [facility] Conversion Encounter Medications Medication SIG (Take, Route, Frequency, Duration) Notes Start Date End Date Status Omeprazole 20 MG 1 cap(s) orally once a day; Duration: 90 Active LEG CRAMP TABLETS 1 TAB(S) ORALLY QHS PRN *Please review for potential replacement for e-prescription and drug interaction check* Active Calcium 600 + D 600 MG-800 INTL UNITS 1 TAB(S) ORALLY DAILY *Please review and pick correct strength-formulat ion from [employer] options. If intended option is not shown, discontinue and re-order from Quick Search* Active Magnesium 400MG 1 TABLET DAILY *Please review and pick correct strength-formulat ion from [employer] options. If intended option is not shown, discontinue and re-order from Quick Search* Active CHLORPHENIRAMINE (ALLERGY) 1 TAB(S) ORALLY QHS *Please review for potential replacement for e-prescription and drug interaction check* Active ALBUTEROL (EQV-PROVENTIL HFA) 90 MCG/INH INHALE 2 PUFF(S) EVERY 6 HOURS NEEDED FOR SHORTNESS OF BREATH; Duration: 30 DAYS *Please review for potential replacement for e-prescription and drug interaction check* Active Naproxen 250 MG 1 tab(s) orally 2 times a day PRN joint pain; Duration: 90 days 11/15/2020 Active Albuterol Sulfate 4 MG 1 tab(s) orally twice daily; Duration: 90 days Active Pseudoephedrine HCl 30 MG 1 tab(s) orally once a day prn; Duration: 30 day(s) 02/17/2020 Active Triamcinolone Acetonide 0.1 % 1 nika applied topically 3 times a day; Duration: 10 days 03/27/2022 Active C-PAP MASK AND SUPPLIES DIRECTED DX SCOTTY; Duration: 30 DAYS *Please review for potential replacement for e-prescription and drug interaction check* 01/21/2020 Active Glucosamine HCl 1500 MG 1 tab(s) orally once a day; Duration: 30 day(s) Active Nicotine 8 POUCHES ORALLY DAILY; Duration: 30 DAY(S) *Please review and pick correct strength-formulat ion from [employer] Plan options. If intended option is not shown, discontinue and re-order from Quick Search* Active rOPINIRole HCl 0.25 MG 1 tab at bedtime for 1 week, if no improvement increase to 2 tabs orally at bedtime; Duration: 30 day(s) Active S-Adenosylmethionine 200 MG 1 TAB(S) ORALLY ONCE A DAY; Duration: 30 DAY(S) *Please review and pick correct strength-formulat ion from [employer] Plan options. If intended option is not shown, discontinue and re-order from Quick Search* Active Encounters Encounter Location Date Provider Diagnosis [facility] [address] [place] [address] 02/12/2025 Provider Migration Allergic dermatitis L23.9 Assessments Encounter Date Diagnosis (ICD Code) Assessment Notes Treatment Notes Treatment Clinical Notes Section Notes 02/12/2025 Allergic dermatitis (ICD-10 - L23.9) Plan Of Treatment Medication Medication Name Sig Start Date Stop Date Notes Omeprazole 20 MG 1 cap(s) orally once a day; Duration: 90 ALBUTEROL (EQV-PROVENTIL HFA) 90 MCG/INH INHALE 2 PUFF(S) EVERY 6 HOURS NEEDED FOR SHORTNESS OF BREATH; Duration: 30 DAYS *Please review for potential replacement for e-prescription and drug interaction check* Albuterol Sulfate 4 MG 1 tab(s) orally t wice daily; Duration: 90 days Triamcinolone Acetonide 0.1 % 1 nika applied topically 3 times a day; Duration: 10 days 03/27/2022 rOPINIRole HCl 0.25 MG 1 tab at bedtime for 1 week, if no improvement increase to 2 tabs orally at bedtime; Duration: 30 day(s) Progress Notes * Camila GUZMANMaribelOB:1955 ( 70 yo F)Acc No.[id number]:02/12/2025 Patient: Awilda PEREZ Provider: Olvin Lees :1955 A ge:69 Y S ex:Female Date:02/12/2025 Address:[address] [place], [place] [id number] Pcp:Cornelio Onofre Subjective: * Chief Complaints: * 1 . [facility] To [facility] Conversion Encounter. * Medical History: * Medications: T aking CHLORPHENIRAMINE (ALLERGY) 1 TAB(S) ORALLY QHS , Notes to Pharmacist: *Please review for potential replacement for e-prescription and drug interaction check*, Taking Calcium 600 + D 600 MG-800 INTL UNITS TABLET 1 TAB(S) ORALLY DAILY , Notes to Pharmacist: *Please review and pick correct strength-formulation from [employer] options. If intended option is not shown, discontinue and re-order from Quick Search*, Taking Magnesium 400MG 1 TABLET DAILY , Notes to Pharmacist: *Please review and pick correct strength-formulation from [employer] options. If intended option is not shown, discontinue and re-order from Quick Search*, Taking LEG CRAMP TABLETS 1 TAB(S) ORALLY QHS PRN , Notes to Pharmacist: *Please review for potential replacement for e-prescription and drug interaction check*, Taking C-PAP MASK AND SUPPLIES DIRECTED DX SCOTTY , Notes to Pharmacist: *Please review for potential replacement for e-prescription and drug interaction check*, Taking Nicotine 8 POUCHES ORALLY DAILY , Notes to Pharmacist: *Please review and pick correct strength-formulation from [employer] options. If intended option is not shown, discontinue and re-order from Quick Search*, Taking S-Adenosylmethionine 200 MG TABLET 1 TAB(S) ORALLY ONCE A DAY , Notes to Pharmacist: *Please review and pick correct strength[facility]ulation [facility]. If intended option is not shown, discontinue and re-order from Quick Search*, Taking Glucosamine HCl 1500 MG Tablet 1 tab(s) orally once a day , Taking Naproxen 250 MG Tablet 1 tab(s) orally 2 times a day PRN joint pain , Taking Pseudoephedrine HCl 30 MG Tablet 1 tab(s) orally once a day prn * Allergies: V itamin C: SOA - Allergy, Penicillin: anaphylaxis - Allergy, NOVACAINE: Allergy, WELLBUTRIN: headache - Side Effects, Chantix: headache - Side Effects. Objective: * Vitals: Assessment: * Assessment: 1. A llergic dermatitis - L23.9 (Primary) Plan: * Treatment: 2. O thers Start Albuterol Sulfate Tablet, 4 MG, 1 tab(s), orally, twice daily, 90 days, 180, Refills 2; C ontinue Omeprazole Capsule Delayed Release, 20 MG, 1 cap(s), orally, once a day, 90, 90, Refills 2; Continue rOPINIRole HCl Tablet, 0.25 MG, 1 tab at bedtime for 1 week, if no improvement increase to 2 tabs, orally, at bedtime, 30 day(s), 60, Refills 2; S tart ALBUTEROL (EQV-PROVENTIL HFA) AEROSOL, 90 MCG/INH, INHALE 2 PUFF(S) EVERY 6 HOURS NEEDED FOR SHORTNESS OF BREATH, 30 DAYS, 6.7 EACH, Refills 0, Notes to Pharmacist: *Please review for potential replacement for e-prescription and drug interaction check*. * * Electronic signature of Prov ider Migration on 09/09/2025 at 08:42 AM EDT Sign off status: Pending * Provider: Olvin mensah Migration Date: 0 02/12/2025 Generated for Kelle muro/Elenita/Debi on: 1 08:42 AM EDT
--- OUTSIDE RECORDS SUMMARY | 2025-09-09 08:42 | XMS_ITS | Data Portability ---
Author Organization [facility] [place] Address [address] [place] [address] Assessment No assessment recorded. Plan of Treatment Reminders Order Date Submit Date Provider Last Modified By Organization Details Last Modified Time Details Appointments None recorded. Lab urinalysis, dipstick [address], [address], 14:43:33 Referral None recorded. Procedures None recorded. Surgeries None recorded. Imaging None recorded. Medication Orders oxybutynin chloride ER 15 mg tablet,exte nded release 24 hr 2022 023 [id number], [address] [place], [address], 14:12:51 Patient TargetsNo targets recorded. Patient InstructionsNo instructions recorded. Reason for Referral None Reported. Results Created Date Observation Date Name Description Value Unit Range Abnormal Flag Note LastModifiedBy Organization Detail LastModifiedTime 03/05/2003/05/2023 urina lysis , dipst ick Leukocytes (reference range) negati ve Not Available [facility] [address], [address], 03/05/2023 13:45:05 03/05/20 23 03/05/2023 urina lysis , dipst ick Nitrite (reference range:) negati ve Not Available [facility] [address] [place], [address], 03/05/2023 13:45:05 03/05/20 23 03/05/2023 urina lysis , dipst ick Urobilinogen (reference range) 0.2 Not Available [address], [address], 03/05/2023 13:45:05 03/05/20 23 03/05/2023 urina lysis , dipst ick Protein (reference range) negati ve Not Available [address], [address], 03/05/2023 13:45:05 03/05/20 23 03/05/2023 urina lysis , dipst ick pH (reference range 5-8.5) 6.5 Not Available [address], [address], 03/05/2023 13:45:05 03/05/20 23 03/05/2023 urina lysis , dipst ick Blood (reference range:) negati ve Not Available [address], [address], 03/05/2023 13:45:05 03/05/20 23 03/05/2023 urina lysis , dipst ick Specific [place] (reference range) 1.020 Not Available [address], [address], 03/05/2023 13:45:05 03/05/20 23 03/05/2023 urina lysis , dipst ick Ketone (reference range) negati ve Not Available [address], [address], 03/05/2023 13:45:05 03/05/20 23 03/05/2023 urina lysis , dipst ick Bilirubin (reference range) negati ve Not Available [facility] [address], [address], 03/05/2023 13:45:05 03/05/20 23 03/05/2023 urina lysis , dipst ick Glucose (reference range) negati ve Not Available [facility] [address] [place], [address], 03/05/2023 13:45:05 Result Notes None recorded. Problems Name Problem SNOMED Code Status Onset Date Resolution Date Notes Provider Name and Address Organization Details Recorded Time Sleep apnea 38985574 Active 2022 Christopher rausch, [place] - [facility] - [place] & [place] 3 13:19:56 Environmental allergy 040020747 Active 2022 Christopher rausch, [place] - [facility] - [place] 3 13:23:21 Depressive disorder 23867863 Active 2022 Christopher rausch, [place] - [facility] - [place] 3 13:25:44 Asthma 215807609 Active 2022 Chirstopher rausch, [place] - [facility] - [place] & [place] 3 13:25:49 Chronic obstructive pulmonary disease 91560058 Active 2022 Christopher rausch, [place] - [facility] - [place] 3 13:25:58 Problem Notes None recorded. Procedures Surgical History Date Name Laterality Status Provider Name and Address Organization Details Recorded Time excision of bunion completed Christopher WILEY - [facility] - [place] & [place] 03/05/2023 13:27:20 Imaging Results None recorded. Procedure Notes None recorded. Medical Equipment None Reported. Allergies Allergen ID Allergen Name Allergen Category Reaction Reaction Severity Criticality Documentation Date Start Date Code Code System Note Provider Name and Address Organization Details Recorded Time 34647 Product containin g penicilli n (product) medicatio n Not available Not available Not available 03/05/2023 37051 8001 SNOMED Christopher rausch, [place] - [facility] - [place] & [place] 3 13:07:46 07439 Wellbutri n medicatio n Not available Not available Not available 03/05/2023 18232 RxNorm Christopher Werner [facility], [facility] & [place] 3 13:07:53 Medications Name Sig Start Date Stop Date Status Note LastModified by Organization Details LastModified Time oxybutynin chloride ER 15 mg tablet,exte nded release 24 hr TAKE 1 TABLET BY MOUTH EVERY DAY active Not Available Not Available No t Available albuterol sulfate 4 mg tablet TAKE 1 TABLET BY MOUTH TWICE A DAY active Not Available Not Available No t Available ropinirole 0.25 mg tablet TAKE 1 TABLET BY MOUTH EVERY DAY FOR RESTLESS LEGS SYNDROME active Not Available Not Available No t Available triamcinolo ne acetonide 0.1 % topical ointment active Not Available Not Available Not Available fluoxetine 10 mg capsule TAKE 1 CAPSULE BY MOUTH EVERY DAY active Not Available Not Available No t Available omeprazole 20 mg capsule,del ayed release TAKE 1 CAPSULE BY MOUTH EVERY DAY active Not Available Not Available No t Available montelukast 10 mg tablet TAKE 1 TABLET BY MOUTH AT BEDTIME FOR ALLERGIES active Not Available Not Available No t Available azelastine 137 mcg (0.1 %) nasal spray SPRAY 2 SPRAYS INTO EACH NOSTRIL AT BEDTIME active Not Available Not Available No t Available albuterol sulfate HFA 90 mcg/actuati on aerosol inhaler INHALE 2 PUFFS EVERY 6 HOURS NEEDED FOR SHORTNESS OF BREATH OR WHEEZING FOR 90 DAYS active Not Available Not Available No t Available fluticasone propionate 50 mcg/actuati on nasal spray,suspe nsion 03/05 completed Not Available Not Available Not Available pseudoephed -DM-guaifen esin ER 30 mg-15 mg-175 mg/5 mL oral suspension Take by oral route. active Not Available Not Available No t Available Myrbetriq 50 mg tablet,exte nded release TAKE 1 TABLET BY MOUTH EVERY DAY 03/13 completed Not Available Not Available Not Available Breo Ellipta 100 mcg-25 mcg/dose powder for inhalation INHALE 1 PUFF BY MOUTH EVERY DAY active Not Available Not Available No t Available Vitals Date Recorded Body height Body mass index (BMI) Body weight Body temperature Provider Name and Address Organization Details Last Updated DateTime 03/05/2023 167.64 cm 32.3 kg/m2 32798.47 g 97.9 [degF] Christopher Werner ID - [facility] - [place] & [place] 03/05/2023 13:18:38 Social History None recorded. Functional Status Question Answer Note LastModified by Organizat ion Details LastModified Time What is your level of alcohol consumption? Occasional [email or web address] Information not available 03/05/2023 Mental Status None recorded. Family History Relationship Description Onset Age of this Age Resolved Age Notes LastModified by Organization Details LastModified Time Mother Family history unknown [email or web address] Not available 2022 13:26:26 Brother Malignant neoplastic disease dec [email or web address] Not available 2022 13:26:41 Sister Malignant neoplastic disease dec [email or web address] Not available 2022 13:26:42 Father Family history unknown [email or web address] Not available 2022 13:26:53 Medical History No medical history recorded. Gynecological HistoryNo gynecological history recorded. Obstetrics History GPAL:G 0 P 0 0 0 0 Past Encounters Encounter ID Performer Location Encounter Start Date Encounter Closed Date Diagnosis/Indication Diagnosis SNOMED-CT Code Diagnosis ICD10 Code Diagnosis IMO Codes Diagnosis Note [id number] Eusebio Vallejo Jr, MD [facility] [address] [address] 03/05/2023 12:49:52 03/05/2023 13:44:50 Urge incontinence of urine 46619537 N39.41 Patient with urge incontinen ce. She has been on Myrbetriq for several years with good results but states it is too expensive. We will change her over to oxybutynin 15 mg a day. Female uri nary stress incontinence 34938157 N39.3 patient with the mild stress urinary incontinen ce. She wears 1-2 light pads per day. We discussed treatment options including a mid urethral sling verses Kegel exercises. We discussed the operative procedure and complicati ons of the procedure. She is going to try conservati ve measures with the Kegel exercises. We discussed that if she changes her mind she may return to the office at any time. Health Concerns Section Related Observation LastModified by Organization Detai ls LastModified Time None Recorded Concern Status LastModified by Organization Details LastModified Time None Recorded Advance Directives Directive None Recorded Payers Insurance Date Sequence Insurance Name Policy Number Policy Aragon Covered Member ID Aragon Member ID Guarantor Name 03/14/2023 1 [place]ARE[place]ICARE[place] Awilda Guzman [id number] Awilda Carrilloin 03/14/2023 2 [employer] (MEDICARE SUPPLEMENT) Awilda Carrilloin [id number] Awilda Guzman Notes Date Note Type Note Provider Name and Address Organization Details Recorded Time 03/05/2023 text/html patient is a 67-year-old white female with a history of urinary incontinence. She has been on Myrbetriq for several years for urge incontinence. She states that the Myrbetriq is too expensive. She states that has helped with her urgency and frequency but she still has some leaking due to stress type maneuvers. She currently wears 1-2 light pads per day. She states that she leaks with sneezing and coughing. Eusebio Vallejo Jr, MD [address] [place] [address], [address], [place], [address], [facility] - [place] - [place] & [place] 03/13/2023 14:17:36 OBGyn Episode No OBEpisode recorded.
--- OUTSIDE RECORDS SUMMARY | 2025-09-09 08:42 | XMS_ITS | Clinical Summary ---
Author Organization [facility] Address [address] [place] [address] Care Team Providers Care Health Support Specialist Name Role Phone Provider, No Known Primary [...] 02/01/2021, 01/04/2021 Insurance MEDICARE A & B [facility] OPTIONS Care Teams Health Support Specialist Relationship Specialty Start Date End Date Provider, No Known [place] [address] PCP - General 02/25/23
--- OUTSIDE RECORDS SUMMARY | 2025-09-09 08:42 | XMS_ITS | Patient Health Record ---
Author Organization [facility] Address [address] [place] [address] [facility] [address] [place] [address] Care Team Providers Care Fire Loss Prevention Engineer Name Role Phone Cornelio Onofre Primary Care Provider Cornelio Onofre Unavailable Unavailable Migration, Provider Unavailable Unavailable Allergies Allergen (clinical drug ingredient) Drug/Non Drug Allergy documented on EMR Reaction Allergy Type Onset Date Status NOVACAINE (uncoded) Unknown Allergy Active WELLBUTRIN (uncoded) headache Allergy Active ascorbic acid Vitamin C SOA Drug Allergy Act jina varenicline Chantix headache Drug Allergy Activ e Penicillin anaphylaxis Drug Allergy Acti ve Reason For Referral No Information Medications Medication SIG (Take, Route, Frequency, Duration) Notes Start Date End Date Status Glucosamine HCl 1500 MG 1 tab(s) orally once a day; Duration: 30 day(s) Active ALBUTEROL (EQV-PROVENTIL HFA) 90 MCG/INH INHALE 2 PUFF(S) EVERY 6 HOURS NEEDED FOR SHORTNESS OF BREATH; Duration: 30 DAYS *Please review for potential replacement for e-prescription and drug interaction check* Active Naproxen 250 MG 1 tab(s) orally 2 times a day PRN joint pain; Duration: 90 days 11/15/2020 Active Albuterol Sulfate 4 MG 1 tab(s) orally twice daily; Duration: 90 days Active Nicotine 8 POUCHES ORALLY DAILY; Duration: 30 DAY(S) *Please review and pick correct strength-formulat ion from TapZillaspan options. If intended option is not shown, discontinue and re-order from Quick Search* Active rOPINIRole HCl 0.25 MG 1 tab at bedtime for 1 week, if no improvement increase to 2 tabs orally at bedtime; Duration: 30 day(s) Active S-Adenosylmethionine 200 MG 1 TAB(S) ORALLY ONCE A DAY; Duration: 30 DAY(S) *Please review and pick correct strength-formulat ion from Taggablean options. If intended option is not shown, discontinue and re-order from Quick Search* Active CHLORPHENIRAMINE (ALLERGY) 1 TAB(S) ORALLY QHS *Please review for potential replacement for e-prescription and drug interaction check* Active Pseudoephedrine HCl 30 MG 1 tab(s) orally once a day prn; Duration: 30 day(s) 02/17/2020 Active Triamcinolone Acetonide 0.1 % 1 nika applied topically 3 times a day; Duration: 10 days 03/27/2022 Active Omeprazole 20 MG 1 cap(s) orally once a day; Duration: 90 Active LEG CRAMP TABLETS 1 TAB(S) ORALLY QHS PRN *Please review for potential replacement for e-prescription and drug interaction check* Active C-PAP MASK AND SUPPLIES DIRECTED DX SCOTTY; Duration: 30 DAYS *Please review for potential replacement for e-prescription and drug interaction check* 01/21/2020 Active Calcium 600 + D 600 MG-800 INTL UNITS 1 TAB(S) ORALLY DAILY *Please review and pick correct strength-formulat ion from Taggablean options. If intended option is not shown, discontinue and re-order from Quick Search* Active Magnesium 400MG 1 TABLET DAILY *Please review and pick correct strength-formulat ion from Taggablean options. If intended option is not shown, discontinue and re-order from Quick Search* Active Immunizations Vaccine Route Administration Date Status Comme nts Pneumovax 23 IM Intramuscular 07/07/2020 Administered Influenza-Fluzone 3+years (NON-MEDICARE) IM Intramuscular 09/24/2018 Administered Fluzone High Dose IM Intramuscular 07/07/2020 Administered Social History Tobacco Use: Social History Observation Description Date Details (start date - stop date) Former Smoker NA - NA Smoking: Question Answer Notes Are you a: former smoker Problems Problem Type SNOMED Code ICD Code Onset Dates Problem Status W/U Status Risk Notes Problem Psychophysiologic insomnia (602375642) Psychophysiologic insomnia (F51.04) Active confirmed Problem Restless legs (62300050) RLS (restless legs syndrome) (G25.81) Active confirmed Problem Allergic rhinitis (16863482) Chronic allergic rhinitis (J30.9) Active confirmed Problem Body mass index 30.00 to 34.99 (032240859608393) BMI 31.0-31.9,adult (Z68.31) Active confirmed Problem Body mass index 30+ - obesity (372484753) BMI 30.0-30.9,adult (Z68.30) Active confirmed Problem COPD - Chronic obstructive pulmonary disease (30976696) Chronic obstructive pulmonary disease, unspecified COPD type (J44.9) Active confirmed Problem Obstructive sleep apnea syndrome (50366197) SCOTTY (obstructive sleep apnea) (G47.33) Active confirmed Problem Joint pain (65184755) Arthralgia of multiple sites (M25.50) Active confirmed Problem Family history of neurofibromatosis (90510734846235) Family history of neurofibromatosis (Z82.79) Active confirmed Problem Daytime somnolence (567038206478) Daytime somnolence (R40.0) Active confirmed Problem Tobacco dependence (49672638) Tobacco dependence (F17.200) Active confirmed Problem Skin sensation disturbance (27413947) Arm paresthesia, right (R20.2) Active confirmed Problem Dysphagia (30291970) Dysphagia, unspecified type (R13.10) Active confirmed Problem Hearing loss (47946820) Change in hearing of left ear (H91.92) Active confirmed Problem Ex-tobacco user (finding) (423084868) Personal history of tobacco use (Z87.891) Active confirmed Problem Localized, primary osteoarthritis of the hand (717026326) Arthritis of hand (M19.049) Active confirmed Problem Seasonal allergic rhinitis (390933533) Chronic seasonal allergic rhinitis (J30.2) Active confirmed Problem Hearing loss (68514366) Change in hearing of right ear (H91.91) Active confirmed Problem Mixed incontinence (801251417) Mixed stress and urge incontinence (N39.46) Active confirmed Encounters Encounter Location Date Provider Diagnosis [facility] [address] [place] [address] [facility] [address] [place] [address] 02/12/2025 Provider Migration Allergic dermatitis L23.9 Assessments Encounter Date Diagnosis (ICD Code) Assessment Notes Treatment Notes Treatment Clinical Notes Section Notes 02/12/2025 Allergic dermatitis (ICD-10 - L23.9) Plan Of Treatment Pending Test Test Name Order Date CT Scan : Chest, Without Contrast 2019 Urinalysis 04/20/2019 Sleep Study 12/07/2021 MRI : Head, With Contrast 02/24/2020 Pulmonary Function Tests with pre and po st Neb tx 07/07/2020 Mammogram : Bilateral 09/24/2018 Mammogram : Bilateral 12/22/2017 C-ARTHRITIS 03/24/2018 C-CCP IGG Antibodies 03/24/2018 Urine Culture, Routine 03/11/2018 Pulmonary Function Test 09/24/2018 M-Respiratory Virus Panel, PCR 0 Insurance Providers Payer Name Payer Address Payer Phone Subscriber Number Group Number Insured Name Patient Relationship to Insured Coverage Start Date Coverage End Date [place] [address] [id number] Awilda Guzman Self - patient is the insured [facility] [address] [place] [address] [id number] Awilda Guzman Self - patient is the insured Medications Administered Medication Instructions Date of Administration Dosage Notes Triamcinolone Acetonide 40mg Injection 02/28/2021 1 mL Medical (General) History Medical History History ICD Code asthma SCOTTY on CPAP Back [id number] negative cologuard October 2018 Tobacco use, stopped around 2016, approx 40 pack year history colonoscopy September 2020 with isolated tubular adenoma Surgical History Surgery Date(Month/Year) D&C bunionectomy x 4
--- OUTSIDE RECORDS SUMMARY | 2025-09-09 08:42 | XMS_ITS | Clinical Summary ---
Author Organization [facility] Address [address] [place] [address] Care Team Providers Care Neighborhood Worker Name Role Phone Cornelio Onofre MD Primary Care Provider [phone] Allergies Active Allergy Reactions Criticality Noted Date [...] Screening 1954 [facility]-Medicare Annual Wellness (AWV) 1955 [facility]-Infant/Child/Adol SDOH Screenings 1954 [facility]- SDOH Screenings 1972 [facility]-Adult SDOH Screenings 1972 [facility]-DTaP,Tdap,and Td Vaccine s (1 - Tdap) 1973 CT Colonography 1999 Colonoscopy 1999 FIT-DNA 1999 FIT 1999 FOBT 1999 Sigmoidoscopy 1999 [facility]-Colorectal Cancer Screening 1999 [facility]-Breast Cancer Screening 2004 [facility]-Pneumococcal Vaccine: 50 + Years (2 of 2 - PCV) 07/07/2021 07/07/2020 [facility]-Zoster Vaccines (2 of 2) 03/13/2023 01/16/2023 [id number] Vaccine (4 - 2024- season) 2025 11/27/2021, [...] age to complete this topic Insurance MEDICARE [facility] Care Teams Neighborhood Worker Relationship Specialty Start Date End Date Cornelio Onofre MD [address] [place] [address] PCP - General 03/23/21
--- NOTE | 2025-09-09 09:00 | US_ITS ---
FINAL REPORT CLINICAL HISTORY: Extensive family history of cholangiocarcinoma COMPARISON: Report dated 03/23/2024 FINDINGS: Sonographic images of the right upper quadrant were obtained. The pancreas is partially obscured. Fatty infiltration of the liver is again noted. Gallstones are present in the gallbladder. The common bile duct measures 7 mm, which is mildly dilated. No intrahepatic ductal dilatation is identified. Limited images of the right kidney are unremarkable. IMPRESSION: Fatty infiltration of the liver, by report seen on the prior ultrasound of 2023. Gallstones are present in the gallbladder with mild enlargement of the common bile duct, however without no gallbladder wall thickening or Jake cholecystic fluid. Reviewed, Interpreted and Dictated by Bobby Lance MD Transcribed by Debbie Davis Authenticated and [facility]
== END 2025-09-09 23:59 | disposition home or self-care (01) ==
LOC: RAD 08:41
PROVIDERS: PCP Family Medicine; Visit Provider Nurse Practitioner Family
DX: K76.0 Fatty (change of) liver, not elsewhere classified (principal); K80.20 Calculus of gallbladder without cholecystitis without obstruction; K83.8 Other specified diseases of biliary tract; Q85.00 Neurofibromatosis, unspecified; Z80.0 Family history of malignant neoplasm of digestive organs
CPT/HCPCS: 76705

== ENCOUNTER 2025-10-31 05:58 | Day surgery (SDC) | payer MEDICARE, SELFPAY ==
--- NOTE | 2025-10-25 14:15 | EXP.HP ---
History of Present Illness *Admission Date: 10/31/25 *History of present illness: Mrs. Guzman is a 70-year-old female who is here for diagnostic EGD and screening/surveillance colonoscopy. The patient does have a history of neurofibromatosis which does run in her family and she does have 10 other family members with neurofibromatosis, 8 of which have had cancer. The patient did have a genetic counselor at [facility] years ago. 2 of her sisters have had cholangiocarcinoma and she has a niece with cholangiocarcinoma. The patient has been struggling with nausea and vomiting especially after eating fatty foods. She did have an ultrasound last year that showed some gallstones. The patient does have a history of GERD and takes omeprazole for about 5 years. She does have some trouble with choking previously which resolved with the omeprazole. She continues to have some dysphagia and the feeling of food getting hung or stuck in the lower part of her esophagus. She did have a barium swallow in November 2020 that showed some barium reflux but no hiatal hernia. Her gallbladder ultrasound in March 2024 showed multiple gallstones as well as fatty infiltration of the liver. The bile duct. Mildly dilated (7 mm) at that time. The patient's last colonoscopy was in August 2020 at which time she had 2 polyps (tubular adenomas x 2) removed and she also had some left-sided diverticulosis. Her uncle had colon cancer and her sister had colon polyps. The examination is deemed medically necessary for diagnostic EGD and screening/surveillance colonoscopy. The patient has been seen, interviewed and examined prior to the procedure by both myself and the anesthesia provider. [facility] Disclaimer: The information contained in this section may have been updated after the patient was seen, as this information can be updated by other users. Medical History High frequency hearing loss of both ears Eustachian tube dysfunction Deviated septum Nasal turbinate hypertrophy Tympanosclerosis of both ears Impacted cerumen of both ears Dysphagia Pre-op evaluation Neurofibromatosis SCOTTY (obstructive sleep apnea) Abnormal screening CT of chest Dyspnea on exertion History of asthma History of smoking 30 or more pack years Pulmonary emphysema Hypertension Coronary artery calcification seen on CT scan Dizziness Abnormal electrocardiogram [ECG] [EKG] Shortness of breath Palpitations GERD (gastroesophageal reflux disease) COPD (chronic obstructive pulmonary disease) Surgical History History of bunionectomy Family History Brother Cancer Neurofibromatosis Sister Cancer Hypertension Neurofibromatosis Mother Hypertension Social History Smoking Status: Former smoker years smoked: 50 smoking status stop date: 11/10/2016 second hand exposure: No alcohol intake: current substance use type: denies use current occupational status: retired Travel in the last 8 weeks?: [place] the [place] household members: spouse and children housing: house current occupational exposures/hazards: No caffeine: Yes Have you lived/traveled outside US in past 30 days?: No Contact w/someone who lives/traveled outside US past 30 days?: No Exposure to someone with infectious disease in past 14 days?: No Do you have a fever (greater than 100.4 F or 38 C)?: No Have you tested positive for COVID-19?: No Exposed to someone with COVID-19 in past 14 days?: No Do you have a sore throat?: No Do you have a cough?: No Do you have any weakness?: No Are you experiencing any nausea/vomitting?: No Do you have any diarrhea?: No Are you experiencing any unusual bleeding?: No Do you have any muscle aches/pain?: No Do you have any abdominal pain?: No Are you experiencing loss of taste or smell?: No Other Medical History Have you received the Flu Vaccine for this season: Yes Have you received the Pneumonia Vaccine: Yes Review of Systems Review of Systems Review of systems (narrative): Negative *Cardiovascular Comments: Negative *Gastrointestinal Comments: Negative *Genitourinary Comments: Negative *Musculoskeletal Comments: Negative *Neurologic Comments: Negative Meds Home Medications and Allergies Home Medications ?Medication ?Instructions ?Recorded ?Confirmed ?Type s-adenosylmethionine 400 mg 400 mg PO DAILY mood 08/29/20 10/31/25 History tablet,delayed release psyllium husk 0.4 gram capsule 0.4 g PO DAILY 01/09/23 10/31/25 History (Metamucil) oxybutynin chloride 15 mg 15 mg PO DAILY 07/08/23 10/31/25 History tablet,extended release 24 hr polyethylene glycol 3350 17 17 g PO DAILY 10/19/24 10/31/25 History gram/dose oral powder (Miralax) omeprazole 20 mg capsule,delayed See Rx Instructions .Route 06/22/25 10/31/25 Rx release .COMPLEX #90 caps epinephrine 0.3 mg/0.3 mL 0.3 mg (0.3 mL) IM Q5-15M PRN 06/24/25 10/31/25 Rx injection, auto-injector (EpiPen anaphylaxis #2 ea 2-Jeff) pseudoephedrine HCl 120 mg 120 mg PO Q12H #40 tabs 06/24/25 10/31/25 Rx tablet,extended release montelukast 10 mg tablet See Rx Instructions .Route 06/27/25 10/31/25 Rx .COMPLEX #90 tabs albuterol sulfate 90 mcg/actuation See Rx Instructions .Route 07/19/25 10/31/25 Rx aerosol inhaler .COMPLEX #18 ea semaglutide 2 mg/dose (8 mg/3 mL) See Rx Instructions .Route 07/25/25 10/31/25 Rx subcutaneous pen injector (Ozempic) .COMPLEX #3 mL albuterol sulfate 4 mg tablet 4 mg PO DAILY 08/03/25 10/31/25 History azelastine 137 mcg (0.1 %) nasal 2 spray intranasal QHS 90 days #30 08/19/25 10/31/25 Rx spray mL ropinirole 0.25 mg tablet 0.25 mg PO DAILY RLS 90 days #90 09/05/25 10/31/25 Rx tabs fluticasone propionate 50 2 spray intranasal DAILY #48 mL 09/22/25 10/31/25 Rx mcg/actuation nasal spray,suspension sodium sul 1.479 gram-potas ch See Rx Instructions PO PER PKG DIR 10/18/25 10/31/25 Rx 0.188 gram-magnes sul 0.225 gram colonscopy #24 tabs tablet (Sutab) fluticasone furoate 100 1 inh inhalation DAILY #90 ea 10/27/25 10/31/25 Rx mcg-vilanterol 25 mcg/dose inhalation powder (Breo Ellipta) New Prescriptions to Start Prescriptions: Allergies Allergy/AdvReac Type Severity Reaction Status Date / Time bupropion (From Wellbutrin) Allergy Rash Verified 10/31/25 06:21 Penicillins Allergy Rash Verified 10/31/25 06:21 procaine (From Novocain) Allergy Rash Verified 10/31/25 06:21 varenicline (From Chantix) Allergy Rash Verified 10/31/25 06:21 vitamin c Allergy Severe Swelling Uncoded 10/27/25 14:42 of Lip/Tongue/Throat Exam *Routine HEENT Exam Head: Present normocephalic Eye: Present EOMI and PERRL ENT: Present mucous membranes moist *Routine Neck Exam Neck: Present supple *Routine Respiratory Exam Respiratory: Present CTA bilaterally *Routine Cardiovascular Exam Cardiovascular: Present RRR *Routine Abdominal Exam Abdominal: Present soft and normoactive bowel sounds; Absent tenderness *Routine Rectal Exam Rectal:: deferred *Routine Genitalia Exam Genitalia:: deferred *Routine Extremities Exam Extremities: Absent cyanosis, clubbing or edema *Routine Skin Exam Skin: Present warm; Absent rash *Routine Neurological Exam Neurological: Present alert and oriented X3 Assessment and Plan *Assessment and plan (1) Common bile duct dilation: Status: Acute Category: Medical Code(s): K83.8 - Other specified diseases of biliary tract (2) Neurofibromatosis: Status: Acute Category: Medical Code(s): Q85.00 - Neurofibromatosis, unspecified (3) Chronic GERD: Status: Acute Category: Medical Code(s): K21.9 - Gastro-esophageal reflux disease without esophagitis (4) Family history of cholangiocarcinoma: Status: Acute Category: Medical Code(s): Z80.0 - Family history of malignant neoplasm of digestive organs (5) Dysphagia: Status: Acute Category: Medical Code(s): R13.10 - Dysphagia, unspecified (6) Personal history of adenomatous and serrated colon polyps: Status: Acute Category: Medical Code(s): Z86.0101 - Personal history of adenomatous and serrated colon polyps Plan A/P: 1. Chronic GERD with dysphagia for EGD and personal history of adenomatous colon polyps and personal history of neurofibromatosis for colonoscopy is the preprocedural diagnosis. The patient will be anesthetized/sedated using MAC sedation. The patient has been seen and examined. Cardiac and lung assessment prior to the examination is stable. Proceed with planned diagnostic EGD and screening/surveillance colonoscopy.
[2025-10-28 12:08] VITALS: BMI 29.5
[2025-10-31 06:26] VITALS: BP 182/72; PULSE 59; RESP 16; TEMP 36.1; O2SAT 98; BMI 29.5
[2025-10-31] MEDS: LACTATED RINGERS 1000ML 1,000 ML 50 ML IV (06:35)
--- NOTE | 2025-10-31 07:00 | HMH.PROCNOTE ---
[facility] Procedure Note Date: 10/31/25 Time: 07:45 Procedure Note:: Upper Endoscopy Procedure Report: Esophagogastroduodenoscopy with cold biopsies and TTS balloon dilation Endoscopost: Anup Cabrera II, MD Referring Physician: Jesus Yun MD Date of Procedure: October 31, 2025 Equipment: Olympus [id number]-1100 standard upper endoscope Sedation: MAC sedation Indications: Mrs. Guzman is a 70-year-old female who is here for diagnostic EGD and screening/surveillance colonoscopy. The patient does have a history of neurofibromatosis which does run in her family and she does have 10 other family members with neurofibromatosis, 8 of which have had cancer. The patient's daughter did have a genetic counselor at [facility] years ago. 2 of her sisters have had cholangiocarcinoma and she has a niece with cholangiocarcinoma. The patient has been struggling with nausea and vomiting especially after eating fatty foods. She did have an ultrasound last year that showed some gallstones. The patient does have a history of GERD and takes omeprazole for about 5 years. She does have some trouble with choking previously which resolved with the omeprazole. She continues to have some dysphagia and the feeling of food getting hung or stuck in the lower part of her esophagus. She did have a barium swallow in November 2020 that showed some barium reflux but no hiatal hernia. Her gallbladder ultrasound in March 2024 showed multiple gallstones as well as fatty infiltration of the liver. The bile duct was mildly dilated (7 mm) at that time. The patient's last colonoscopy was in August 2020 at which time she had 2 polyps (tubular adenomas x 2) removed and she also had some left-sided diverticulosis. Her uncle had colon cancer and her sister had colon polyps. The examination is deemed medically necessary for diagnostic EGD and screening/surveillance colonoscopy. Procedure: Prior to the procedure, a history and physical exam was performed, and patient's medications and allergies were reviewed. The risks, benefits and alternatives of the sedation and procedure were discussed with the patient. All questions were answered and informed consent was obtained. The patient was brought to the procedure room. Patient identification and proposed procedure were verified by the physician and the nurse. The patient was placed in a left lateral decubitus position and the scope was passed under direct vision. Throughout the procedure, the patient's blood pressure, pulse, and oxygen saturations were monitored continuously. The upper GI endoscopy was accomplished without difficulty. The patient tolerated the procedure well. Findings: The scope was passed directly into the upper esophagus and advanced to the third portion of the duodenum. The post bulbar duodenum, ampulla and duodenal bulb were normal with normal mucosa and conniventes. 2 cold biopsies were taken from the second portion of the duodenum for the disaccharidase assay. The scope was withdrawn through a normal duodenal bulb and pylorus into the stomach. There was moderate linear reactive gastropathy of the antrum and body with some bile reflux. The fundus of the stomach was normal. Upon retroflexion there was a very small sliding 1 to 2 cm hiatal hernia. 2 cold biopsies were taken from the antrum. The scope was then withdrawn into the esophagus. There were no rings, strictures, webs, corrugation, furrowing or inlet patch. There were tertiary contractions and evidence of mild esophageal dysmotility. The entire esophagus was dilated to 60 Estonian/20 mm with a TTS hydrostatic balloon. There was mild resistance at the cricopharyngeus. The remainder of the esophageal mucosa was normal. Impression: 1. Nonerosive GERD with mild esophageal dysmotility, cricopharyngeal spasm and very small sliding 1 to 2 cm hiatal hernia 2. Bile reflux with moderate linear reactive gastropathy of antrum and body Plan: I will follow-up the biopsies and the disaccharidase assay. We will discuss additional treatment options. I will proceed with screening/surveillance colonoscopy.
--- NOTE | 2025-10-31 07:00 | HMH.PROCNOTE ---
[facility] Procedure Note Date: 10/31/25 Time: 08:09 Procedure Note:: Colonoscopy Procedure Report: Colonoscopy with cold snare polypectomy Endoscopist: Anup Cabrera II, MD Referring physician: Jesus Yun MD Date of Procedure: October 31, 2025 Equipment: Olympus [id number] adult colonoscope Sedation: MAC sedation Indication: Mrs. Guzman is a 70-year-old female who is here for diagnostic EGD and screening/surveillance colonoscopy. The patient does have a history of neurofibromatosis which does run in her family and she does have 10 other family members with neurofibromatosis, 8 of which have had cancer. The patient's daughter did have a genetic counselor at [facility] years ago. 2 of her sisters have had cholangiocarcinoma and she has a niece with cholangiocarcinoma. The patient has been struggling with nausea and vomiting especially after eating fatty foods. She did have an ultrasound last year that showed some gallstones. The patient does have a history of GERD and takes omeprazole for about 5 years. She does have some trouble with choking previously which resolved with the omeprazole. She continues to have some dysphagia and the feeling of food getting hung or stuck in the lower part of her esophagus. She did have a barium swallow in November 2020 that showed some barium reflux but no hiatal hernia. Her gallbladder ultrasound in March 2024 showed multiple gallstones as well as fatty infiltration of the liver. The bile duct was mildly dilated (7 mm) at that time. The patient's last colonoscopy was in August 2020 at which time she had 2 polyps (tubular adenomas x 2) removed and she also had some left-sided diverticulosis. Her uncle had colon cancer and her sister had colon polyps. The examination is deemed medically necessary for diagnostic EGD and screening/surveillance colonoscopy. Procedure: Prior to the procedure, a history and physical exam was performed, and patient's medications and allergies were reviewed. The risks, benefits and alternatives of the sedation and procedure were discussed with the patient. All questions were answered and informed consent was obtained. The patient was brought to the procedure room. Patient identification and proposed procedure were verified by the physician and the nurse. The patient was placed in a left lateral decubitus position and the scope was passed under direct vision. Throughout the procedure, the patient's blood pressure, pulse, and oxygen saturations were monitored continuously. The colonoscopy was accomplished without difficulty. The patient tolerated the procedure well. Findings: On digital rectal examination there was normal rectal tone. There were no external hemorrhoids. The colonoscope was introduced through the anal canal to the rectum and advanced to the cecum. The ileocecal valve and appendiceal orifice were identified. The scope was advanced a short distance into the ileum which appeared grossly normal. The scope was then withdrawn into the colon. There were 6 colon polyps (ascending x 3 (4, 5 and 6 mm), transverse x 2 (5 and 7 mm) and ascending x 1 (4 mm)). These were all removed via cold snare polypectomy. The remaining cecum, ascending and transverse colon and mucosa were grossly normal. There were mildly scattered diverticuli throughout the descending and sigmoid colon (LEFT colon). The rectum itself was normal. Upon retroflexion within the rectum there were grade 1-2 internal hemorrhoids. The preparation was excellent throughout with [place] Preparation Score of 9. The cecal time was 16 minutes. Impression: 1. Colonic polyps x 6 2. Mild left-sided diverticulosis 3. Grade 1-2 internal hemorrhoids Plan: I will follow-up the polyp histology and recommend repeat screening/surveillance colonoscopy again in 3 years. I would encourage psyllium bulking fiber supplementation on a long-term daily maintenance basis. Because of her family history of cholangiocarcinoma and mild bile duct dilation, I we will send serum CEA and CA 19-9 levels for screening.
--- NOTE | 2025-10-31 07:22 | EXP.ANES.CKL ---
[facility] Disclaimer: The information contained in this section may have been updated after the patient was seen, as this information can be updated by other users. Medical History High frequency hearing loss of both ears Eustachian tube dysfunction Deviated septum Nasal turbinate hypertrophy Tympanosclerosis of both ears Impacted cerumen of both ears Dysphagia Pre-op evaluation Neurofibromatosis SCOTTY (obstructive sleep apnea) Abnormal screening CT of chest Dyspnea on exertion History of asthma History of smoking 30 or more pack years Pulmonary emphysema Hypertension Coronary artery calcification seen on CT scan Dizziness Abnormal electrocardiogram [ECG] [EKG] Shortness of breath Palpitations GERD (gastroesophageal reflux disease) COPD (chronic obstructive pulmonary disease) Surgical History History of bunionectomy Family History Brother Cancer Neurofibromatosis Sister Cancer Hypertension Neurofibromatosis Mother Hypertension Social History Smoking Status: Former smoker years smoked: 50 smoking status stop date: 11/10/2016 second hand exposure: No alcohol intake: current substance use type: denies use current occupational status: retired Travel in the last 8 weeks?: [place] the [place] household members: spouse and children housing: house current occupational exposures/hazards: No caffeine: Yes Have you lived/traveled outside US in past 30 days?: No Contact w/someone who lives/traveled outside US past 30 days?: No Exposure to someone with infectious disease in past 14 days?: No Do you have a fever (greater than 100.4 F or 38 C)?: No Have you tested positive for COVID-19?: No Exposed to someone with COVID-19 in past 14 days?: No Do you have a sore throat?: No Do you have a cough?: No Do you have any weakness?: No Are you experiencing any nausea/vomitting?: No Do you have any diarrhea?: No Are you experiencing any unusual bleeding?: No Do you have any muscle aches/pain?: No Do you have any abdominal pain?: No Are you experiencing loss of taste or smell?: No [facility] Anesthesia Checklist Patient Identification Patient Identification: Arm Band and Verbal (Name & ) Structural Data Admitted From: Home Planned Operative Procedure/s: EGD and Colonscopy Consent for Planned Operative Procedure(s) Verified: Yes Verified Documents: Surgical Consent and History and Physical NPO Status Verified Time NPO: 00:00 Additional verifications Patient : No Anesthesia Reactions: No Previous Colonoscopy: Yes Airway Assessment Mallampati Score:: Class II Dentition: Good Dentition Neurological Assessment Level of Consciousness: Awake, Alert and Appropriate Hx Seizures: No Numbness or tingling in extremities: No Anesthesia Plan Anesthesia Risk discussed: Yes Anesthesia Plan: Verified ASA Class: III Anesthesia Type: MAC
[2025-10-31 08:12] VITALS: BP 131/78; PULSE 57; RESP 16; TEMP 36.1; O2SAT 98
[2025-10-31 08:22] VITALS: BP 145/72; PULSE 55; RESP 18; TEMP 36.1; O2SAT 97
[2025-10-31 08:32] VITALS: BP 161/78; PULSE 52; RESP 18; TEMP 36.1; O2SAT 100
[2025-10-31 08:42] VITALS: BP 145/76; PULSE 52; RESP 18; TEMP 36.1; O2SAT 99
[2025-11-01 10:04] LABS: CA 19-9 <2 U/mL (0-35); CEA 3.5 ng/mL (0.0-4.7)
[2025-11-14 09:17] LABS: Interpretation Notes (.); Lactase 44.57 (>/= 14.0); Maltase 201.48 (>/= 110.0); Palatinase 14.86 (>/= 8.5); Reference Notes (.); Sucrase 56.91 (>/= 25.0)
== END 2025-10-31 09:04 | disposition home or self-care (01) ==
PROVIDERS: PCP Family Medicine; Visit Provider Internal Medicine Gastroenterology
PROC: 0DJ08ZZ Inspection of Upper Intestinal Tract, Via Natural or Artificial Opening Endoscopic (ICD-10-PCS; CPT 45378; principal; 2025-10-31 07:30)
DX: K83.8 Other specified diseases of biliary tract (principal); Q85.00 Neurofibromatosis, unspecified; K31.89 Other diseases of stomach and duodenum; D12.2 Benign neoplasm of ascending colon; D12.4 Benign neoplasm of descending colon; D12.3 Benign neoplasm of transverse colon; K64.1 Second degree hemorrhoids; K22.4 Dyskinesia of esophagus; K44.9 Diaphragmatic hernia without obstruction or gangrene; R97.8 Other abnormal tumor markers; K57.30 Diverticulosis of large intestine without perforation or abscess without bleeding; K21.9 Gastro-esophageal reflux disease without esophagitis; Z80.0 Family history of malignant neoplasm of digestive organs; R13.10 Dysphagia, unspecified; Z86.0101 Personal history of adenomatous and serrated colon polyps; Z87.891 Personal history of nicotine dependence
CPT/HCPCS: 43239; 43249; 45385; 36415; 82378; 82657; 86301; 88305; C1726; J2003; J2704; J7120